=== PATIENT | female | born 1950 | race Caucasian/White ===

== ENCOUNTER 2022-09-13 16:34 | Observation (INO) | payer MEDICARE, SELFPAY ==
[2022-09-13] VITALS (23 sets, daily range): BP systolic 111–138; BP diastolic 62–83; PULSE 56–94; RESP 13–28; TEMP 36.8; O2SAT 96–100
--- NOTE | ~2022-09-13 | XR_ITS ---
EXAM: XR abdomen/kub 1V DATE: 09/13/2022 21:33 HISTORY: stent evaluation . COMPARISON: None available. FINDINGS: Bilateral ureteral stents projecting in expected position. Normal bowel gas pattern. No or ganomegaly. Multiple calcifications are present adjacent to the bilateral stents which may represent vascular calcifications, phleboliths, or distal ureteral stones. Lumbar degenerative disc disease. Os teitis pubis. IMPRESSION: Bilateral ureteral stents, in good position. Multiple calcifications are present adjacent to the stents which may represent ureteral stones. CT of the abdomen and pelvis would be helpful if more definitive characterization is needed at this time. Reviewed, dictated and finalized at location K. RAFT DISPATCHER IMPRESSION: Bilateral ureteral stents, in good position. Multiple calcification s are present adjacent to the stents which may represent ureteral stones. CT of the abdomen and pelvis would be helpful if more definitive characterization is needed at this time.
--- NOTE | ~2022-09-13 | US_ITS ---
EXAMINATION: US renal BI DATE: 09/13/2022 22:09 INDICATION: renal and bladder US for stents and SURENDRA TECHNIQUE: Multiple grayscale and Doppler ultrasound images of the kidneys were obtained. COMPARISON: X-ray abdomen, same date FINDINGS: The right kidney measures 10.4 x 5.0 x 5.5 cm. The left kidney measures 10.4 x 5.3 x 5.7 cm. The kidn eys demonstrate normal parenchymal echogenicity. There is mild left and moderate right hydronephrosis . Ureteral jets were not detected during the examination. No bladder wall thickening. No bladder mass or debris detected. IMPRESSION: Mild left and moderate right hydronephrosis. Ureteral jets were not visualized in the bladder. The kn own bilateral ureteral stents were not visible sonographically. Reviewed, dictated and finalized at location K. T ROLLER COVER MACHINE SETTER IMPRESSION: Mild left and moderate right hydronephrosis. Ureteral jets were not visualized in the bladder. The known bilateral ureteral stents were not visible sonographi cecelia.
--- NOTE | ~2022-09-13 | CT_ITS ---
CT scan of the Abdomen and Pelvis Clinical indication: Hydronephrosis Technique: 5 mm axial scans were obtained through the abdomen and pelvis with oral contrast only. Do se reduction technique was used on this scan by utilizing automated exposure control and iterative re construction technique. The dose-length product (DLP) was 536.80 mGy-cm. Findings: Images through the lung bases reveal no abnormalities. There is mild to moderate bilateral hydronephrosis. Bilateral ureteral stents are present. No radiopa que stones identified. The liver, spleen, pancreas, and adrenals appear normal. Gallbladder not visualized. There is no aort ic aneurysm. There is no evidence of bowel obstruction. Normal appendix. Images through the pelvis were performed. There is no evidence of ascites or lymphadenopathy. Urinary bladder relatively collapsed, Morales catheter balloon and distal portion of ureteral stents present. No adnexal mass evident. No ascites. Mild compression deformity of L4 noted, age indeterminate. Impression: Mild to moderate bilateral hydronephrosis with bilateral ureteral stents in place. No obstructing mas s or stones identified. Mild L4 compression deformity, age indeterminate. Reviewed, dictated and finalized at location [] WARE ENGINEER ADVISOR Impression: Mild to moderate bilateral hydronephrosis with bilateral ureteral stents in dov ce. No obstructing mass or stones identified. Mild L4 compression deformity, age indeterminate.
--- NOTE | 2022-09-13 16:45 | ECG_ITS ---
Measurements Intervals [place] Rate: 72 P: 46 [place]: 162 QRS: -20 QRSD: 105 T: 53 QT: 344 QTc: 376 Interpretive Statements SINUS RHYTHM MINIMAL VOLTAGE CRITERIA FOR LVH, CONSIDER NORMAL VARIANT [MEETS CRITERIA IN ONE OF: R(aVL), S(V1), R(V5), R(V5/V6)+S(V1)] NO PREVIOUS ECG AVAILABLE FOR COMPARISON Electronically Signed On 09-13-2022 19:13:04 SENIOR INTERNAL AUDITOR by Estela Rutledge M.D.
[2022-09-13 17:01] LABS: Basophils Absolute Auto 0.1 K/mm3 (0.0-0.1); Eosinophils Absolute Auto 0.2 K/mm3 (0-0.3); Eosinophils Percent Auto 3.1 % (0-4.4); Hematocrit 36.8 % (37.0-47.0); Hemoglobin 11.4 g/dL (12.0-15.0); Immature Granulocyte Absolute 0.03 K/mm3 (0.00-0.031); Immature Granulocyte Percent A 0.4 % (0-0.5); Lymphocytes Absolute Auto 1.75 K/mm3 (0.9-3.2); Lymphocytes Percent Auto 22.6 % (18.3-44.2); Mean Corpuscular Hemoglobin 29.5 pg (26-34); Mean Corpuscular Volume 95.1 fl (80-100); Mean Platelet Volume 9.3 fl (7.4-10.4); Monocytes Absolute Auto 0.4 K/mm3 (0.1-0.6); Monocytes Percent Auto 5.2 % (2.6-8.5); Neutrophils Absolute Auto 5.3 K/mm3 (1.3-6.7); Neutrophils Percent Auto 67.7 % (45.5-73.1); Platelet Count Result 356 k/mm3 (150-375); Red Blood Count 3.87 M/mm3 (4.2-5.4); Red Cell Distribution Width 13.2 % (11.5-14.5); White Blood Count 7.8 K/mm3 (4.5-10.0)
[2022-09-13 17:11] LABS: Alanine Aminotransferase 24 U/L (6-35); Albumin Level 4.5 g/dL (3.5-5.1); Alkaline Phosphatase 134 U/L (38-126); Anion Gap 9 mmol/L (8-16); Aspartate Amino Transferase 26 U/L (14-36); Bilirubin,Total 0.5 mg/dL (0.2-1.3); Blood Urea Nitrogen 42 mg/dL (7-17); Calcium 9.9 mg/dL (8.4-10.2); Carbon Dioxide 20 mmol/L (22-30); Chloride 102 mmol/L (98-107); Estimated CRCL calculation 16 ml/min; Estimated Glomerular Filt Rate 17; Glucose 90 mg/dL (65-110); Potassium 5.9 mmol/L (3.4-5.0); Sodium 131 mmol/L (137-145)
[2022-09-13] MEDS: ONDANSETRON INJ 4 MG/2 ML VIAL IV PUSH (20:15)
[2022-09-13] MEDS: SODIUM CHLORIDE 0.9% IV 1,000 ML 999 ML IV CONT (20:15)
[2022-09-13] MEDS: BELLADONNA ALK/PHENOB ELIX 10 ML, MAG HYDROX/ALUMINUM HYD/SIMETH 30 ML, LIDOCAINE HCL 2... PO (20:16)
[2022-09-13 21:09] LABS: Add Urine Microscopic? YES; Appearance Urine Cloudy (Clear); Bilirubin Urine Negative (Negative); Blood Urine 2+ (Negative); Color Urine Light Yellow (Yellow); Glucose Urine UA Negative (Negative); Ketones Urine Negative (Negative); Leukocyte Esterase Ur 1+ LEU/UL (Negative); Nitrate Urine Negative (Negative); Protein Urine 2+ mg/dL (Negative); Urobilinogen Urine 0.2 mg/dL (<2.0); pH Urine 5.5 (5.0-9.0)
[2022-09-13 21:17] LABS: Amorphous Sediment Urine Few; Bacteria Urine Trace /hpf; Hyaline Casts Urine 15-19 /lpf; Mucus Urine Rare /lpf; RBC Urine 21-50 /hpf (0-2); Squamous Epithelial Cell Urine Few /hpf (Few); WBC Clumps Urine Present /HPF; WBC Urine 51-75 /hpf
--- NOTE | 2022-09-13 21:45 | ED.GENADULT ---
HPI - General Adult General Chief complaint: Recheck/Abnormal Lab/Rx Stated complaint: high k+ Time Seen by Provider: 09/13/22 19:45 History of Present Illness HPI narrative: Patient is a 71-year-old female who presents the ER with abnormal labs. She had hyperkalemia outpatient so she was instructed to come to the ER to be evaluated. Last week patient was admitted to [facility] and had stenting performed of her ureters bilaterally because she has a cystocele that is causing obstruction and kidney injury. She is unsure what her creatinine is at baseline nor what it improved to after she had her stenting. She is supposed to follow-up with urology and see Dr. Hurtado tomorrow. She has been having increased fatigue and weakness. No fevers or chills or sweats. She has been able to urinate. Patient had been on Bactrim until 2 days ago. Review of Systems Review of Systems: All systems reviewed & are unremarkable except as noted in HPI and below Constitutional: Constitutional: Denies chills, Reports fatigue and Denies fever(s) ENT: Denies nasal congestion and Denies sore throat Cardiovascular: Cardiovascular: Denies chest pain, Denies rapid heart rate and Denies radiating jaw, neck or arm pain Respiratory: Respiratory: Denies cough and Denies dyspnea Gastrointestinal: Gastrointestinal: Denies abdominal pain, Denies nausea and Denies vomiting Genitourinary: Genitourinary: Denies hematuria, Denies nocturia, Denies dysuria and Denies urinary incontinence PMFSH Past Medical History Medical History (Updated 09/13/22 @ 21:54 by Nadeem Bush MD) Cystocele GERD (gastroesophageal reflux disease) Hypertension Surgical History Surgical History (Updated 09/13/22 @ 21:52 by Nadeem Bush MD) No pertinent past surgical history Exam Narrative: GENERAL: Well-appearing, well-nourished, and in no acute distress. HEAD: Normocephalic, atraumatic. ENT: Mucous membranes moist. CHEST: Clear to auscultation. No respiratory distress. HEART: Regular rate and rhythm. Normal peripheral pulses. ABDOMEN: Soft, nontender, nondistended. EXTREMITIES: Normal range of motion. No edema. SKIN: Warm, dry, no rash. NEURO: Alert and oriented x3. PSYCH: Normal mood and affect. Course Course Emergency Course: Patient resting comfortably. Informed of results. Urology consulted. Recommend patient have a renal bladder ultrasound and then have patient urinate and place a Morales for I's and O's. After the urination the post void residual should be calculated. Patient will continue to be hydrated to help reduce her hyperkalemia. Records requested from [facility]. Patient will be admitted to the hospitalist service. Vital Signs Vital signs: Vital Signs Temperature 98.2 F 09/13/22 16:37 Pulse Rate 70 09/13/22 16:37 Respiratory Rate 16 09/13/22 16:37 Blood Pressure 133/68 09/13/22 16:37 Pulse Oximetry 100 09/13/22 16:37 Oxygen Delivery Room Air 09/13/22 16:37 Temperature 98.2 F 09/13/22 16:37 Pulse Rate 74 09/13/22 19:38 Respiratory Rate 18 09/13/22 19:38 Blood Pressure 138/83 09/13/22 19:38 Pulse Oximetry 98 09/13/22 19:38 Oxygen Delivery Room Air 09/13/22 16:37 Medical Decision Making Vital Signs Vital Signs: Vital Signs Temperature 98.2 F 09/13/22 16:37 Pulse Rate 70 09/13/22 16:37 Respiratory Rate 16 09/13/22 16:37 Blood Pressure 133/68 09/13/22 16:37 Pulse Oximetry 100 09/13/22 16:37 Oxygen Delivery Room Air 09/13/22 16:37 Temperature 98.2 F 09/13/22 16:37 Pulse Rate 74 09/13/22 19:38 Respiratory Rate 18 09/13/22 19:38 Blood Pressure 138/83 09/13/22 19:38 Pulse Oximetry 98 09/13/22 19:38 Oxygen Delivery Room Air 09/13/22 16:37 Lab Data 09/13/22 16:54 09/13/22 16:54 Labs: Lab Results 09/13/22 09/13/22 09/13/22 Range/Units 16:54 16:54 20:52 WBC 7.8 (4.5-10.0) K/mm3 RBC 3.87 L
[2022-09-13 22:12] LABS: Influenza A QL RT-PCR Negative (Negative); Influenza B QL RT-PCR Negative (Negative); RSV RNA, RT-PCR Negative (Negative); SARS-CoV-2 RNA PCR Negative
--- NOTE | 2022-09-13 22:34 | PM.IMHP ---
H&P: HPI History of Present Illness Date/Time: 09/13/22 22:34 Chief Complaint: abnormal lab work Narrative: This is a 71-year-old female with past medical history significant for cystocele, your obstructive uropathy, status post bilateral ureter stent placement, urinary tract infection. patient comes to the emergency room after outpatient lab work showed an elevated potassium. Repeated lab work in the emergency room showed a potassium value of 5.9, BUN of 40, creatinine 2.8, patient states that she has no appetite, denies any fevers, rigors, chills, nausea, vomiting, diarrhea, shortness of breath, cough, sputum production. a Morales was placed in the emergency room. patient is been admitted for further evaluation management and treatment. Abdomen x-ray was reported as: IMPRESSION: Bilateral ureteral stents, in good position. Multiple calcifications are present adjacent to the stents which may represent ureteral stones. CT of the abdomen and pelvis would be helpful if more definitive characterization is needed at this time. bilateral kidney ultrasound was reported as: IMPRESSION: Mild left and moderate right hydronephrosis. Ureteral jets were not visualized in the bladder. The known bilateral ureteral stents were not visible sonographically. Review of Systems Review of Systems: Abnormal lab value, poor appetite. Constitutional: Constitutional: Denies chills, Denies fever(s) and Reports poor appetite Eyes: Eyes: Denies change in vision ENT: Denies dysphagia, Denies vertigo, Denies dizziness and Denies odynophagia Cardiovascular: Cardiovascular: Denies chest pain, Denies leg edema, Denies radiating jaw, neck or arm pain and Denies palpitations Respiratory: Respiratory: Denies change in phlegm color, Denies chest congestion, Denies cough, Denies excessive phlegm production, Denies pain on inspiration, Denies dyspnea and Denies dyspnea on exertion Gastrointestinal: Gastrointestinal: Denies abdominal pain, Denies dyspepsia, Denies heartburn, Denies diarrhea, Denies loose stools, Denies nausea and Denies vomiting Genitourinary: Genitourinary: Reports no additional female genitourinary complaints and Reports as per HPI Musculoskeletal: Musculoskeletal: Reports no additional musculoskeletal complaints and Reports as per HPI Integumentary/Breasts: Skin/Breast: Denies rash Neurologic: Denies focal weakness and Denies Sensory deficit (Neuro) Psychiatric: Psychiatric: Reports no additional psychiatric complaints Endocrine: Endocrine: Denies cold intolerance, Denies flushing, Denies heat intolerance, Denies polyphagia, Denies polydipsia and Denies palpitations Allergic/Immunologic: Allergic/Immunologic: Reports no additional allergic/immunologic complaints and Reports as per [facility] Past Medical History Medical History (Updated 09/14/22 @ 04:28 by Carmen Hanna MD) Cystocele GERD (gastroesophageal reflux disease) Hypertension Surgical History Surgical History (Updated 09/13/22 @ 21:52 by Nadeem Bush MD) No pertinent past surgical history Family History Family History (Updated 09/14/22 @ 01:43 by Lovely Limon RN) Father Acute myocardial infarction Mother Cervical cancer Social History Social History Smoking packs per day: 2 Smoking cigarettes per day: 40.0 Smoking status: Former smoker Tobacco type: cigarettes Alcohol intake: never Substance use: never Substance use type: does not use Lack of Transportation: No Lack of Food: Never True Current Housing: I Have Housing Concerned About Future Housing: No Difficulty Paying Gas/Electric Bills: No Difficulty Paying for Meds: No Currently Unemployed: No Education: High School Diploma/GED Difficulty w/ Childcare or Family Care: No Spiritual care concerns: No Meds Home Medications and Allergies Home Medications Medication Instructions Recorded Confirmed Type amlodipine 5 mg tablet 5 mg PO DAILY
[2022-09-14] VITALS (18 sets, daily range): BP systolic 101–138; BP diastolic 50–83; PULSE 57–80; RESP 15–21; TEMP 36.1–36.7; O2SAT 93–100; BMI 26.4
--- NOTE | 2022-09-14 01:23 | ADMGEN ---
This patient, Thuy Sauceda, was admitted to Medical Room 248-. Patient/family oriented to hospital policies and general routines including ID bracelet, bed and alarms, visiting hours, pain management, procedures, bathroom and other care routines, personal items, smoking policy, room service/diet, and visiting hours. Information on how to activate the Rapid Response Team has been discussed. Patient/Family are encouraged to report perceived risks to care and to ask questions if they do not understand what they are told or what they should do.
[2022-09-14] MEDS: SODIUM CHLORIDE 0.9% IV 1,000 ML 125 ML IV CONT ×3 (02:00→18:58)
[2022-09-14] MEDS: PANTOPRAZOLE SODIUM IV 40 MG VIAL IV PUSH (03:15)
[2022-09-14 04:56] LABS: Anion Gap 5 mmol/L (8-16); Blood Urea Nitrogen 36 mg/dL (7-17); Calcium 9.2 mg/dL (8.4-10.2); Carbon Dioxide 22 mmol/L (22-30); Chloride 108 mmol/L (98-107); Estimated CRCL calculation 20 ml/min; Estimated Glomerular Filt Rate 21; Glucose 87 mg/dL (65-110); Potassium 6.7 mmol/L (3.4-5.0); Sodium 135 mmol/L (137-145)
[2022-09-14] MEDS: SODIUM ZIRCONIUM CYCLOSILICATE 10 GM POWD.PACK PO ×3 (05:34→17:24)
[2022-09-14] MEDS: DEXTROSE 50% 25 GM/50 ML SYRINGE IV PUSH (05:39)
[2022-09-14] MEDS: CALCIUM GLUC 1,000 MG/NS 50 ML 1,000 MG/50 ML BAG 100 MG IVPB (05:39)
[2022-09-14] MEDS: INSULIN HUMAN REGULAR (*BKC) 100 UNITS/ML SUB-Q (05:39)
[2022-09-14 08:36] LABS: Potassium 5.6 mmol/L (3.4-5.0)
[2022-09-14] MEDS: amLODIPine BESYLATE 5 MG TABLET PO (09:58)
[2022-09-14] MEDS: PANTOPRAZOLE 40 MG TABLET PO (09:59)
[2022-09-14 10:00] LABS: Add Urine Microscopic? YES; Appearance Urine Clear (Clear); Bilirubin Urine Negative (Negative); Blood Urine 1+ (Negative); Color Urine Light Yellow (Yellow); Glucose Urine UA Negative (Negative); Ketones Urine Negative (Negative); Leukocyte Esterase Ur 2+ LEU/UL (NEGATIVE); Nitrate Urine Negative (Negative); Protein Urine Negative (Negative); Specific Grav Ur 1.015 (1.001-1.035); Urobilinogen Urine 0.2 mg/dL (<2.0); pH Urine 5.5 (5.0-9.0)
[2022-09-14 10:14] LABS: Bacteria Urine Trace /hpf; Mucus Urine Rare /lpf; Squamous Epithelial Cell Urine Rare /hpf (Few); WBC Urine 31-50 /hpf (0-3)
--- NOTE | 2022-09-14 11:00 | PM.IMPN ---
Progress Note: A&P Assessment and Plan (1) SURENDRA (acute kidney injury): Code(s): N17.9 - Acute kidney failure, unspecified Status: Acute Assessment and Plan: creatinine upon arrival was 2.80 current BUN and creatinine 36/2.30 holding Hira inhibitor receiving IV fluid Morales catheter in place likely post renal continue to monitor trend labs urology consult thank you for your help (2) Acute hyperkalemia: Code(s): E87.5 - Hyperkalemia Status: Acute Assessment and Plan: current potassium is 6.7 this morning repeat was 5.6 holding HIRA-inhibitor Lokelma b.i.d. x2 doses trend potassium adjust therapy as indicated (3) GERD (gastroesophageal reflux disease): Code(s): K21.9 - Gastro-esophageal reflux disease without esophagitis Status: Acute Assessment and Plan: PPI as needed (4) Cystocele: Status: Acute Assessment and Plan: follow-up in outpatient setting (5) Hydronephrosis: Code(s): N13.30 - Unspecified hydronephrosis Status: Acute Assessment and Plan: CT the abdomen pelvis showed mild moderate hydronephrosis renal ultrasound showed [id number] right hydronephrosis urinary stents are in place urology consulted trend urine output (6) Hypertension: Code(s): I10 - Essential (primary) hypertension Status: Acute Assessment and Plan: current blood pressure 107/51 trend blood pressure continue amlodipine adjust therapy as indicated Time Spent With Patient Time with patient: Greater than 35 minutes Subjective Date/time seen: 09/14/22 1100 Interval history: 09/14/22 1100 patient was resting comfortably in bed and stated that she feels a lot better today. She does have good urine output per the urinary catheter. It appears that there is better repeat CT which does show mild to moderate continued hydronephrosis. She denies any chest pain, shortness a breath, burning, pain, urgency or frequency as she does have a catheter in. She also denies any pain at this time. She did state that she is having a little bit of GERD but that is not present the time of examination. 09/13/22? 22:34 ?This is a 71-year-old female with past medical history significant for cystocele, your obstructive uropathy, status post bilateral ureter stent placement, urinary tract infection. patient comes to the emergency room after outpatient lab work showed an elevated potassium.? Repeated lab work in the emergency room showed a potassium value of 5.9, BUN of 40, creatinine 2.8, patient states that she has no appetite, denies any fevers, rigors, chills, nausea, vomiting, diarrhea, shortness of breath, cough, sputum production. a Morales was placed in the emergency room. patient is been admitted for further evaluation management and treatment. Review of Systems Review of Systems: All systems reviewed & are unremarkable except as noted in HPI and below Exam Narrative: General: well-nourished, well-appearing 71-year-old female, sitting up in bed, comfortable, NARD Neuro: awake, alert and oriented x4, speech clear, no focal neuro deficits noted HEENMT: normocephalic, atraumatic, EOMI, sclerae anicteric, moist oral mucosa Respiratory: Clear to auscultation bilaterally without crackles, rhonchi or wheezes, nonlabored breathing Cardio: regular rate, regular rhythm with S1-S2 Abdomen: nondistended, normoactive bowel sounds, soft, nontender to palpation : catheter present with clear yellow drainage Extremities: no edema, erythema, or tenderness to palpation, DP pulses 2+ bilaterally Skin: no rashes or lesions, warm and dry Psych: appropriate mood and affect, judgment and insight intact Objective Data Vital Signs Vital Signs: Vital Signs - 24 hr 09/13/22 16:37 09/13/22 19:38 09/13/22 19:
--- NOTE | 2022-09-14 11:00 | P.PNIM_ITS ---
Progress Note: A&P Assessment and Plan (1) SURENDRA (acute kidney injury): Code(s): N17.9 - Acute kidney failure, unspecified Status: Acute Assessment and Plan: * creatinine upon arrival was 2.80 * current BUN and creatinine 36/2.30 * holding Hira inhibitor * receiving IV fluid * Morales catheter in place * likely post renal * continue to monitor * trend labs * urology consult thank you for your help (2) Acute hyperkalemia: Code(s): E87.5 - Hyperkalemia Status: Acute Assessment and Plan: * current potassium is 6.7 this morning repeat was 5.6 * holding HIRA-inhibitor * Lokelma b.i.d. x2 doses * trend potassium * adjust therapy as indicated (3) GERD (gastroesophageal reflux disease): Code(s): K21.9 - Gastro-esophageal reflux disease without esophagitis Status: Acute Assessment and Plan: * PPI as needed (4) Cystocele: Status: Acute Assessment and Plan: * follow-up in outpatient setting (5) Hydronephrosis: Code(s): N13.30 - Unspecified hydronephrosis Status: Acute Assessment and Plan: * CT the abdomen pelvis showed mild moderate hydronephrosis * renal ultrasound showed [id number] right hydronephrosis * urinary stents are in place * urology consulted * trend urine output (6) Hypertension: Code(s): I10 - Essential (primary) hypertension Status: Acute Assessment and Plan: * current blood pressure 107/51 * trend blood pressure * continue amlodipine * adjust therapy as indicated Time Spent With Patient Time with patient: Greater than 35 minutes Subjective Date/time seen: 09/14/22 1100 Interval history: 09/14/22 1100 patient was resting comfortably in bed and stated that she feels a lot better today. She does have good urine output per the urinary catheter. It appears that there is better repeat CT which does show mild to moderate continued hydronephrosis. She denies any chest pain, shortness a breath, burning, pain, urgency or frequency as she does have a catheter in. She also denies any pain at this time. She did state that she is having a little bit of GERD but that is not present the time of examination. 09/13/22? 22:34 ?This is a 71-year-old female with past medical history significant for cystocele, your obstructive uropathy, status post bilateral ureter stent placement, urinary tract infection. patient comes to the emergency room after outpatient lab work showed an elevated potassium.? Repeated lab work in the emergency room showed a potassium value of 5.9, BUN of 40, creatinine 2.8, patient states that she has no appetite, denies any fevers, rigors, chills, nausea, vomiting, diarrhea, shortness of breath, cough, sputum production. a Morales was placed in the emergency room. patient is been admitted for further evaluation management and treatment. Review of Systems Review of Systems: All systems reviewed & are unremarkable except as noted in HPI and below Exam Narrative: General: well-nourished, well-appearing 71-year-old female, sitting up in bed, comfortable, NARD Neuro: awake, alert and oriented x4, speech clear, no focal neuro deficits noted HEENMT: normocephalic, atraumatic,
--- NOTE | 2022-09-14 15:39 | WPDURCON ---
Assessment and Plan Assessment and plan (1) Hydronephrosis: Code(s): N13.30 - Unspecified hydronephrosis Status: Acute Assessment and Plan: Stents in place and draining, creatinine improving with serrano catheter in place for maximal drainage. Likely d/t extrinsic pressure from prolapse. Patient will ultimately need an outpatient colpocleisis if not sexually active or a sacral colpopexy to correct the issue. She understands her stents and catheter will remain in until then with monthly catheter changes. She will need to see Dr. Hurtado and I will have a discussion about the urgency of the matter of this. No need for surgical intervention at this time. She should proceed to have her labs stabilized and to rule out a UTI. (2) Cystocele: Status: Acute (3) SURENDRA (acute kidney injury): Code(s): N17.9 - Acute kidney failure, unspecified Status: Acute Assessment and Plan: Improving with cath placement and stents in place. Urology Consult Note HPI Date Seen: 09/14/22 Time Seen: 12:00 Requesting Physician: Carmen Hanna MD Primary Care Provider: Dejon Corral, Consult Narrative Reason for consult: Bilateral [place], Retained Stents, Possible UTI Narrative: Thuy Sauceda is a 71 year old female who presented to the ER at the advise of her PCP d/t hyperkalemia. She was previously hospitalized at [facility] last week and had bilateral stents placed d/t bilateral hydronephrosis d/t extrinsic pressure from her severe prolapse by Dr. Titus. She was then found to have SURENDRA while here and a creatinine of 2.80. After a serrano was placed her creatinine has started to decrease to 2.30 today. Her WBC is 7.8, but UA is suspicious of a UTI. She was having urinary frequency and dysuria as well as difficultly emptying her bladder. [facility] 09/13/22 mild left and moderate right hydronephrosis noted. A CT scan was then ordered today showing mild to moderate bilateral hydronephrosis with bilateral ureteral stents in place. No obstructing mass or stones identified. The patient states that her prolapse has been bothersome for approximately 2 years as well as difficulty voiding. She is unsure of her baseline creatinine. Review of Systems Cardiovascular: Cardiovascular: Denies chest pain Respiratory: Respiratory: Reports no additional respiratory complaints Gastrointestinal: Gastrointestinal: Reports no additional gastrointestinal complaints, Denies abdominal pain, Denies nausea and Denies vomiting Genitourinary: Genitourinary: Denies hematuria, Reports nocturia, Denies dysuria, Denies flank pain, Denies urinary incontinence, Reports urinary hesitancy and Denies urinary urgency PMFSH Past Medical History Medical History Cystocele GERD (gastroesophageal reflux disease) Hypertension Surgical History Surgical History No pertinent past surgical history Family History Family History Father Acute myocardial infarction Mother Cervical cancer Social History Social History Smoking packs per day: 2 Smoking cigarettes per day: 40.0 Smoking status: Former smoker Tobacco type: cigarettes Alcohol intake: never Substance use: never Substance use type: does not use Lack of Transportation: No Lack of Food: Never True Current Housing: I Have Housing Concerned About Future Housing: No Difficulty Paying Gas/Electric Bills: No Difficulty Paying for Meds: No Currently Unemployed: No Education: High School Diploma/GED Difficulty w/ Childcare or Family Care: No Spiritual care concerns: No Meds Home Medications and Allergies Home Medications Medication Instructions Recorded Confirmed Type amlodipine 5 mg tablet 5 mg PO DAILY 09/14/2209/01
[2022-09-15] VITALS: PULSE 60
[2022-09-15] MEDS: SODIUM CHLORIDE 0.9% IV 1,000 ML 125 ML IV CONT (02:50)
[2022-09-15 04:00] VITALS: BP 101/55; PULSE 61; PULSE 63; RESP 17; TEMP 36.5; O2SAT 94
[2022-09-15 05:48] LABS: Basophils Absolute Auto 0.1 K/mm3 (0.0-0.1); Basophils Percent Auto 1.3 % (0.2-1.2); Eosinophils Absolute Auto 0.4 K/mm3 (0-0.3); Eosinophils Percent Auto 7.7 % (0-4.4); Hematocrit 29.1 % (37.0-47.0); Hemoglobin 8.9 g/dL (12.0-15.0); Immature Granulocyte Absolute 0.01 K/mm3 (0.00-0.031); Immature Granulocyte Percent A 0.2 % (0-0.5); Lymphocytes Absolute Auto 2.26 K/mm3 (0.9-3.2); Lymphocytes Percent Auto 40.4 % (18.3-44.2); Mean Corpuscular HGB Conc 30.6 g/dl (32-36); Mean Corpuscular Hemoglobin 29.8 pg (26-34); Mean Corpuscular Volume 97.3 fl (80-100); Mean Platelet Volume 9.5 fl (7.4-10.4); Monocytes Absolute Auto 0.4 K/mm3 (0.1-0.6); Neutrophils Absolute Auto 2.4 K/mm3 (1.3-6.7); Neutrophils Percent Auto 43.4 % (45.5-73.1); Platelet Count Result 231 k/mm3 (150-375); Red Blood Count 2.99 M/mm3 (4.2-5.4); Red Cell Distribution Width 13.2 % (11.5-14.5); White Blood Count 5.6 K/mm3 (4.5-10.0)
[2022-09-15 06:03] LABS: Alanine Aminotransferase 17 U/L (6-35); Albumin Level 3.3 g/dL (3.5-5.1); Alkaline Phosphatase 101 U/L (38-126); Anion Gap 3 mmol/L (8-16); Aspartate Amino Transferase 20 U/L (14-36); Bilirubin,Total 0.3 mg/dL (0.2-1.3); Blood Urea Nitrogen 23 mg/dL (7-17); Calcium 8.5 mg/dL (8.4-10.2); Carbon Dioxide 22 mmol/L (22-30); Chloride 115 mmol/L (98-107); Estimated CRCL calculation 25 ml/min; Estimated Glomerular Filt Rate 28; Glucose 79 mg/dL (65-110); Potassium 5.2 mmol/L (3.4-5.0); Sodium 140 mmol/L (137-145)
--- NOTE | 2022-09-15 06:25 | P.PNIM_ITS ---
Progress Note: A&P Assessment and Plan (1) SURENDRA (acute kidney injury): Code(s): N17.9 - Acute kidney failure, unspecified Status: Acute Assessment and Plan: * creatinine upon arrival was 2.80 * current BUN and creatinine 23/1.80 * holding Hira inhibitor * receiving IV fluid, DC'd at this time * Morales catheter in place, will be DC'd with catheter in place * likely post renal * continue to monitor * trend labs * urology consult thank you for your help (2) Acute hyperkalemia: Code(s): E87.5 - Hyperkalemia Status: Acute Assessment and Plan: * current potassium is 6.7 this morning 5.2 * holding HIRA-inhibitor * Lokelma give one more dose * One dose of IV lasix * Repeat labs in the afternoon * trend potassium * adjust therapy as indicated (3) GERD (gastroesophageal reflux disease): Code(s): K21.9 - Gastro-esophageal reflux disease without esophagitis Status: Acute Assessment and Plan: * PPI as needed (4) Cystocele: Status: Acute Assessment and Plan: * follow-up in outpatient setting (5) Hydronephrosis: Code(s): N13.30 - Unspecified hydronephrosis Status: Acute Assessment and Plan: * CT the abdomen pelvis showed mild moderate hydronephrosis * renal ultrasound showed rvtk-ny-szyieytz right hydronephrosis * urinary stents are in place * urology consulted * trend urine output (6) Hypertension: Code(s): I10 - Essential (primary) hypertension Status: Acute Assessment and Plan: * current blood pressure 101/55 * trend blood pressure * continue amlodipine * adjust therapy as indicated Time Spent With Patient Time with patient: Greater than 35 minutes Subjective Date/time seen: 09/15/22 06:25 Interval history: 09/15/22 09/14/22 1100 patient was resting comfortably in bed and stated that she feels a lot better today. She does have good urine output per the urinary catheter. It appears that there is better repeat CT which does show mild to moderate continued hydronephrosis. She denies any chest pain, shortness a breath, burning, pain, urgency or frequency as she does have a catheter in. She also denies any pain at this time. She did state that she is having a little bit of GERD but that is not present the time of examination. 09/13/22? 22:34 ?This is a 71-year-old female with past medical history significant for cystocele, your obstructive uropathy, status post bilateral ureter stent placement, urinary tract infection. patient comes to the emergency room after outpatient lab work showed an elevated potassium.? Repeated lab work in the emergency room showed a potassium value of 5.9, BUN of 40, creatinine 2.8, patient states that she has no appetite, denies any fevers, rigors, chills, nausea, vomiting, diarrhea, shortness of breath, cough, sputum production. a Morales was placed in the emergency room. patient is been admitted for further evaluation management and treatment. Review of Systems Review of Systems: All systems reviewed & are unremarkable except as noted in HPI and below Exam Narrative: General: well-nourished, well-appearing 71-year-old female, sitting up in bed, c
--- NOTE | 2022-09-15 06:25 | PM.IMPN ---
Progress Note: A&P Assessment and Plan (1) SURENDRA (acute kidney injury): Code(s): N17.9 - Acute kidney failure, unspecified Status: Acute Assessment and Plan: creatinine upon arrival was 2.80 current BUN and creatinine 23/1.80 holding Hira inhibitor receiving IV fluid, DC'd at this time Morales catheter in place, will be DC'd with catheter in place likely post renal continue to monitor trend labs urology consult thank you for your help (2) Acute hyperkalemia: Code(s): E87.5 - Hyperkalemia Status: Acute Assessment and Plan: current potassium is 6.7 this morning 5.2 holding HIRA-inhibitor Lokelma give one more dose One dose of IV lasix Repeat labs in the afternoon trend potassium adjust therapy as indicated (3) GERD (gastroesophageal reflux disease): Code(s): K21.9 - Gastro-esophageal reflux disease without esophagitis Status: Acute Assessment and Plan: PPI as needed (4) Cystocele: Status: Acute Assessment and Plan: follow-up in outpatient setting (5) Hydronephrosis: Code(s): N13.30 - Unspecified hydronephrosis Status: Acute Assessment and Plan: CT the abdomen pelvis showed mild moderate hydronephrosis renal ultrasound showed prig-qy-itziyend right hydronephrosis urinary stents are in place urology consulted trend urine output (6) Hypertension: Code(s): I10 - Essential (primary) hypertension Status: Acute Assessment and Plan: current blood pressure 101/55 trend blood pressure continue amlodipine adjust therapy as indicated Time Spent With Patient Time with patient: Greater than 35 minutes Subjective Date/time seen: 09/15/22 06:25 Interval history: 09/15/22 09/14/22 1100 patient was resting comfortably in bed and stated that she feels a lot better today. She does have good urine output per the urinary catheter. It appears that there is better repeat CT which does show mild to moderate continued hydronephrosis. She denies any chest pain, shortness a breath, burning, pain, urgency or frequency as she does have a catheter in. She also denies any pain at this time. She did state that she is having a little bit of GERD but that is not present the time of examination. 09/13/22? 22:34 ?This is a 71-year-old female with past medical history significant for cystocele, your obstructive uropathy, status post bilateral ureter stent placement, urinary tract infection. patient comes to the emergency room after outpatient lab work showed an elevated potassium.? Repeated lab work in the emergency room showed a potassium value of 5.9, BUN of 40, creatinine 2.8, patient states that she has no appetite, denies any fevers, rigors, chills, nausea, vomiting, diarrhea, shortness of breath, cough, sputum production. a Omrales was placed in the emergency room. patient is been admitted for further evaluation management and treatment. Review of Systems Review of Systems: All systems reviewed & are unremarkable except as noted in HPI and below Exam Narrative: General: well-nourished, well-appearing 71-year-old female, sitting up in bed, comfortable, NARD Neuro: awake, alert and oriented x4, speech clear, no focal neuro deficits noted HEENMT: normocephalic, atraumatic, EOMI, sclerae anicteric, moist oral mucosa Respiratory: Clear to auscultation bilaterally without crackles, rhonchi or wheezes, nonlabored breathing Cardio: regular rate, regular rhythm with S1-S2 Abdomen: nondistended, normoactive bowel sounds, soft, nontender to palpation : catheter present with clear yellow drainage Extremities: no edema, erythema, or tenderness to palpation, DP pulses 2+ bilaterally Skin: no rashes or lesions, warm and dry Psych: appropriate mood and affect, judgment and insight i
[2022-09-15 08:00] VITALS: PULSE 62
[2022-09-15] MEDS: amLODIPine BESYLATE 5 MG TABLET PO (08:12)
[2022-09-15] MEDS: FUROSEMIDE INJ 40 MG/4 ML VIAL 20 MG IV PUSH (08:12)
[2022-09-15] MEDS: PANTOPRAZOLE 40 MG TABLET PO (08:12)
[2022-09-15] MEDS: SODIUM ZIRCONIUM CYCLOSILICATE 10 GM POWD.PACK PO (10:22)
[2022-09-15 10:34] VITALS: BP 106/58; PULSE 71; RESP 16; TEMP 36.7; O2SAT 98
--- NOTE | 2022-09-15 10:45 | PM.DS ---
DS: Admitting Diagnosis Discharge Date 09/15/22 1045 Admitting Diagnosis SURENDRA, Urinary retention, hyperkalemia DS: Discharge Diagnosis Discharge Diagnosis (1) SURENDRA (acute kidney injury): Code(s): N17.9 - Acute kidney failure, unspecified Status: Acute Assessment and Plan: creatinine upon arrival was 2.80 current BUN and creatinine 23/1.80 holding Hira inhibitor receiving IV fluid, DC'd at this time Morales catheter in place, will be DC'd with catheter in place likely post renal continue to monitor trend labs urology consult thank you for your help (2) Acute hyperkalemia: Code(s): E87.5 - Hyperkalemia Status: Acute Assessment and Plan: current potassium is 6.7 this morning 5.2 holding HIRA-inhibitor Lokelma give one more dose One dose of IV lasix Repeat labs in the afternoon trend potassium adjust therapy as indicated (3) GERD (gastroesophageal reflux disease): Code(s): K21.9 - Gastro-esophageal reflux disease without esophagitis Status: Acute Assessment and Plan: PPI as needed (4) Cystocele: Status: Acute Assessment and Plan: follow-up in outpatient setting (5) Hydronephrosis: Code(s): N13.30 - Unspecified hydronephrosis Status: Acute Assessment and Plan: CT the abdomen pelvis showed mild moderate hydronephrosis renal ultrasound showed uggd-pl-enssrpei right hydronephrosis urinary stents are in place urology consulted trend urine output (6) Hypertension: Code(s): I10 - Essential (primary) hypertension Status: Acute Assessment and Plan: current blood pressure 101/55 trend blood pressure continue amlodipine adjust therapy as indicated DS: Summary Hospital Course Hospital Course: Patient is 69-year-old female with past medical history cystocele, obstructive uropathy, bilateral ureteral stents, urinary tract infection who presented the emergency room due to elevated potassium. Upon arrival patient was noted to have a potassium of 6.7. Patient was given insulin and D50. IV fluids were also started. Patient was also placed with Morales catheter. Urology was consulted. CT of the abdomen pelvis did show zipa-ry-lzihejjd hydronephrosis and renal ultrasound also confirmed. Patient was given Lokelma and potassium is trending down. Renal function has also been trending down and is stable. Urine culture was also collected and did not show any growth. Patient denies any current complaints including chest pain, shortness a breath, nausea, vomiting, diarrhea, constipation, weakness or fatigue. Lisinopril has been placed on hold and blood pressures have been trending stable. Patient is stable for discharge at this time per labs and vital signs. Education has been given about Morales catheter. Also educated patient about taking her blood pressure twice a day and reporting them to her primary care provider for further instructions on when to restart her lisinopril. Patient verbalized understanding. Status at Discharge Functional status at discharge: independent ambulation Overall status at discharge: patient is progressing back to baseline Time Spent with Patient Time attestation: Total time spent providing and/or coordinating discharge services: 37 minutes Time spent: Greater than 30 minutes Specific discharge activities: Diagnostic testing, chart review, developing a treatment plan, education, care coordination documentation, physical exam, result review Exam Narrative: General: well-nourished, well-appearing 71-year-old female, sitting up in bed, comfortable, NARD Neuro: awake, alert and oriented x4, speech clear, no focal neuro deficits noted HEENMT: normocephalic, atraumatic, EOMI, sclerae anicteric, moist oral mucosa Respiratory: Clear to auscultation b
--- NOTE | 2022-09-15 10:45 | P.DS_ITS ---
DS: Admitting Diagnosis Discharge Date 09/15/22 1045 Admitting Diagnosis SURENDRA, Urinary retention, hyperkalemia DS: Discharge Diagnosis Discharge Diagnosis (1) SURENDRA (acute kidney injury): Code(s): N17.9 - Acute kidney failure, unspecified Status: Acute Assessment and Plan: * creatinine upon arrival was 2.80 * current BUN and creatinine 23/1.80 * holding Hira inhibitor * receiving IV fluid, DC'd at this time * Morales catheter in place, will be DC'd with catheter in place * likely post renal * continue to monitor * trend labs * urology consult thank you for your help (2) Acute hyperkalemia: Code(s): E87.5 - Hyperkalemia Status: Acute Assessment and Plan: * current potassium is 6.7 this morning 5.2 * holding HIRA-inhibitor * Lokelma give one more dose * One dose of IV lasix * Repeat labs in the afternoon * trend potassium * adjust therapy as indicated (3) GERD (gastroesophageal reflux disease): Code(s): K21.9 - Gastro-esophageal reflux disease without esophagitis Status: Acute Assessment and Plan: * PPI as needed (4) Cystocele: Status: Acute Assessment and Plan: * follow-up in outpatient setting (5) Hydronephrosis: Code(s): N13.30 - Unspecified hydronephrosis Status: Acute Assessment and Plan: * CT the abdomen pelvis showed mild moderate hydronephrosis * renal ultrasound showed dgxy-ku-vwjcmxul right hydronephrosis * urinary stents are in place * urology consulted * trend urine output (6) Hypertension: Code(s): I10 - Essential (primary) hypertension Status: Acute Assessment and Plan: * current blood pressure 101/55 * trend blood pressure * continue amlodipine * adjust therapy as indicated DS: Summary Hospital Course Hospital Course: Patient is 69-year-old female with past medical history cystocele, obstructive uropathy, bilateral ureteral stents, urinary tract infection who presented the emergency room due to elevated potassium. Upon arrival patient was noted to have a potassium of 6.7. Patient was given insulin and D50. IV fluids were also started. Patient was also placed with Morales catheter. Urology was consulted. CT of the abdomen pelvis did show pnhf-ns-ciwkuglr hydronephrosis and renal ultrasound also confirmed. Patient was given Lokelma and potassium is trending down. Renal function has also been trending down and is stable. Urine culture was also collected and did not show any growth. Patient denies any current complaints including chest pain, shortness a breath, nausea, vomiting, diarrhea, constipation, weakness or fatigue. Lisinopril has been placed on hold and blood pressures have been trending stable. Patient is stable for discharge at this time per labs and vital signs. Education has been given about Morales catheter. Also educated patient about taking her blood pressure twice a day and reporting them to her primary care provider for further i nstructions on when to restart her lisinopril. Patient verbalized understanding. Status at Discharge Functional status at discharge: independent ambulation Overall status at discharge: patient is progressing back to baseline Time Spent with Patient Time attestation: Total time spent pro
[2022-09-15] MEDS: polyethylene glycoL 3350 17 GM POWD.PACK PO (11:56)
[2022-09-15] MEDS: DOCUSATE SODIUM 100 MG CAPSULE PO (11:56)
[2022-09-15 12:00] VITALS: PULSE 67
[2022-09-15 14:27] LABS: Alanine Aminotransferase 18 U/L (6-35); Albumin Level 3.6 g/dL (3.5-5.1); Alkaline Phosphatase 114 U/L (38-126); Anion Gap 10 mmol/L (8-16); Aspartate Amino Transferase 35 U/L (14-36); Bilirubin,Total 0.6 mg/dL (0.2-1.3); Blood Urea Nitrogen 22 mg/dL (7-17); Calcium 8.9 mg/dL (8.4-10.2); Carbon Dioxide 16 mmol/L (22-30); Chloride 112 mmol/L (98-107); Estimated CRCL calculation 26 ml/min; Estimated Glomerular Filt Rate 30; Glucose 105 mg/dL (65-110); Potassium 4.9 mmol/L (3.4-5.0); Sodium 138 mmol/L (137-145)
[2022-09-15 14:58] VITALS: BP 115/61; PULSE 67; RESP 18; TEMP 36.6; O2SAT 100
== END 2022-09-15 16:13 | disposition home or self-care (01) ==
LOC: ANHED 22:45 → ANH2MED 09-15 06:34 → ANH3MEDSUR 09-16 11:27
PROVIDERS: Emergency Medicine; Nurse Practitioner; Admitting Provider Internal Medicine; Emergency Provider Emergency Medicine; PCP Internal Medicine; Visit Provider Internal Medicine
DX: N17.9 Acute kidney failure, unspecified (principal); E87.5 Hyperkalemia; K21.9 Gastro-esophageal reflux disease without esophagitis; N81.10 Cystocele, unspecified; N13.30 Unspecified hydronephrosis; Z96.0 Presence of urogenital implants; R53.1 Weakness; R63.0 Anorexia; Z68.26 Body mass index [BMI] 26.0-26.9, adult; Z20.822 Contact with and (suspected) exposure to COVID-19; I10 Essential (primary) hypertension; M43.8X6 Other specified deforming dorsopathies, lumbar region; Z87.891 Personal history of nicotine dependence; Z79.899 Other long term (current) drug therapy
CPT/HCPCS: 36415; 74018; 74176; 76775; 80048; 80053; 81001; 83735; 84132; 85025; 87086; 87637; 93005; 96361; 96374; 96375; 99285; A9270; C9113; G0378; J0610; J1815; J1940; J2405; J7030

== ENCOUNTER 2022-10-17 12:25 | Outpatient (CLI) | payer MEDICARE, SELFPAY ==
--- NOTE | ~2022-10-17 | US_ITS ---
EXAMINATION: US pelvic complete DATE: 10/17/2022 13:50 INDICATION: Uterine prolapse. Comparison:CT dated 09/14/2022 TECHNIQUE: Multiple transabdominal and endovaginal sonographic images of the pelvis performed. FINDINGS: The uterus measures 6.9 x 3 x 3.4 cm. The endometrial complex measures 2. Uterine echotextu re is heterogeneous without discrete mass. There is prolapse of the uterus into the vagina. The ovaries are not visualized. There is no free fluid in the pelvis. There are no abnormal masses seen on either side. IMPRESSION: 1. Uterine prolapse. Reviewed, dictated and finalized at location A. PROMENADE TILE SETTER IMPRESSION: 1. Uterine prolapse.
== END 2022-10-17 12:26 | disposition home or self-care (01) ==
PROVIDERS: PCP Internal Medicine; Visit Provider Nurse Practitioner Family
DX: N81.4 Uterovaginal prolapse, unspecified (principal)
CPT/HCPCS: 76856

== ENCOUNTER 2023-04-03 11:06 | Outpatient (CLI) | payer MEDICARE, SELFPAY ==
--- NOTE | ~2023-04-03 | US_ITS ---
EXAMINATION: US retroperitoneal comp DATE: 04/03/2023 12:00 INDICATION: Bilateral hydronephrosis TECHNIQUE: Multiple ultrasound grayscale images of the kidneys were obtained. COMPARISON: None. FINDINGS: The right kidney measures 10.6 x 4.1 x 4.4 cm. The left kidney measures 10.6 x 4.7 x 5.0 cm. The kidn eys demonstrate normal echogenicity. 1.6 cm anechoic cyst in the left kidney. There is no hydronephro sis in either kidney. No stones identified. The bladder is normal. IMPRESSION: 1. Normal kidneys without hydronephrosis. Reviewed, dictated and finalized at location B.
== END 2023-04-03 11:07 | disposition home or self-care (01) ==
PROVIDERS: PCP Internal Medicine; Visit Provider Nurse Practitioner Family
DX: N13.30 Unspecified hydronephrosis (principal)
CPT/HCPCS: 76770

== ENCOUNTER 2025-09-03 14:11 | Emergency (ER) | payer MEDICARE, SELFPAY ==
--- OUTSIDE RECORDS SUMMARY | 2024-06-28 08:00 | XMS_ITS ---
Author Organization [facility] Office Address [address] [place] [address] Care Team Providers Care Field Court Researcher Name Role Phone Will Tacho Unavailable [phone] Problems Problem Type SNOMED Code ICD Code Onset Dates Problem Status W/U Status Risk Notes Problem Essential hypertension (21394739) Essential hypertension (I10) Active confirmed Problem Cystocele (587111974) Cystocele, unspecified (N81.10) Active confirmed Problem Age-related osteoporosis (647444596) Age-related osteoporosis without current pathological fracture (M81.0) Active confirmed Encounters Encounter Location Date Provider Diagnosis [place] [facility] [address] [facility] [address] [place] [address] 06/28/2024 Tacho Solis Chronic kidney disease, stage 3 unspecified N18.30 ; Essential hypertension I10 ; Cystocele, unspecified N81.10 ; Dyspnea, unspecified R06.00 and Age-related osteoporosis without current pathological fracture M81.0 Assessments Encounter Date Diagnosis (ICD Code) Assessment Notes Treatment Notes Treatment Clinical Notes Section Notes 06/28/2024 Chronic kidney disease, stage 3 unspecified (ICD-10 - N18.30) 06/28/2024 Essential hypertension (ICD-10 - I10) 06/28/2024 Cystocele, unspecified (ICD-10 - N81.10) 06/28/2024 Dyspnea, unspecified (ICD-10 - R06.00) 06/28/2024 Age-related osteoporosis without current pathological fracture (ICD-10 - M81.0) Plan Of Treatment Next Appt Details Provider Name:Tacho Solis , 11/05/2025 04:45:00 PM, [address] [facility], [facility], [place], [address], Progress Notes * Thuy BANDADOB:1950 (74 yo F)Acc No.[id number]:06/28/2024 Progress Notes Patient: Thuy BONNER Provider: Darryl OSPINA MD, F.Barry.Richi.P, F.A.S.N. :1950 A ge:73 Y S ex:Female Date:06/28/2024 Address:[address] [place] [address] Subjective: * Chief Complaints: * * Medical History: Objective: * Vitals: Assessment: * Assessment: 1. C hronic kidney disease, stage 3 unspecified - N18.30 (Primary) 2 . E ssential hypertension - I10 3 . C ystocele, unspecified - N81.10 4 . D yspnea, unspecified - R06.00 5 . A ge-related osteoporosis without current pathological fracture - M81.0 Plan: * Treatment: * Billing Information: * Visit Code: 78383 Office Visit, New Pt., Level 5. * Procedure Codes: * Electronic signature of Salma Solis MD on 09/03/2025 at 03:26 PM HEAD OF HOUSEKEEPING Sign off status: Pending * Provider: Darryl OSPINA MD, Nathanael.CristinaP, F.A.S.N. Date: 0 06/28/2024 Generated for Printing/Faxing/eTransmitting on: 1 11/04/2024 03:26 PM HEAD OF HOUSEKEEPING
--- OUTSIDE RECORDS SUMMARY | 2024-07-12 08:30 | XMS_ITS ---
Author Organization [facility] Office Address [address] [place] [address] Care Team Providers Care Senior Product Consultant Name Role Phone Tacho Solis Unavailable [phone] Encounters Encounter Location Date Provider Diagnosis [place] [facility] [address] [facility] [address] [place] [address] 07/12/2024 Tacho Solis Chronic kidney disease, stage 3 unspecified N18.30 ; Essential hypertension I10 ; Cystocele, unspecified N81.10 and Age-related osteoporosis without current pathological fracture M81.0 Assessments Encounter Date Diagnosis (ICD Code) Assessment Notes Treatment Notes Treatment Clinical Notes Section Notes 07/12/2024 Chronic kidney disease, stage 3 unspecified (ICD-10 - N18.30) 07/12/2024 Essential hypertension (ICD-10 - I10) 07/12/2024 Cystocele, unspecified (ICD-10 - N81.10) 07/12/2024 Age-related osteoporosis without current pathological fracture (ICD-10 - M81.0) Plan Of Treatment Next Appt Details Provider Name:Tacho Solis , 11/05/2025 04:45:00 PM, [address] [facility] 15, [place], [address], Progress Notes * Thuy BANDADOB:1950 (74 yo F)Acc No.[id number]:07/12/2024 Progress Notes Patient: Thuy BONNER Provider: Darryl OSPINA MD, F.A.C.P, F.A.S.N. :1950 A ge:73 Y S ex:Female Date:07/12/2024 Address:[address] [place] [address] Subjective: * Chief Complaints: * * Medical History: Objective: * Vitals: Assessment: * Assessment: 1. C hronic kidney disease, stage 3 unspecified - N18.30 (Primary) 2 . E ssential hypertension - I10 3 . C ystocele, unspecified - N81.10 4 . A ge-related osteoporosis without current pathological fracture - M81.0 Plan: * Treatment: * Billing Information: * Visit Code: 68219 Office Visit, Est Pt., Level 4. * Procedure Codes: * Electronic signature of Salma Solis MD on 09/03/2025 at 03:27 PM PANEL MAKER Sign off status: Pending * Provider: Darryl OSPINA MD, F.A.C.P, F.A.S.N. Date: Generated for Printing/Faxing/eTransmitting on: 11/04/2024 03:27 PM PANEL MAKER
--- OUTSIDE RECORDS SUMMARY | 2024-09-11 10:15 | XMS_ITS ---
Author Organization [facility] Office Address [address] [place] [address] Care Team Providers Care Assistant Elementary Teacher Name Role Phone Jose Daniel Solisjit Unavailable [phone] Problems Problem Type SNOMED Code ICD Code Onset Dates Problem Status W/U Status Risk Notes Problem Diabetic renal disease (330253364) Type 2 diabetes mellitus with diabetic chronic kidney disease (E11.22) Active confirmed Problem Vitamin D deficiency (18553816) Vitamin D deficiency, unspecified (E55.9) Active confirmed Encounters Encounter Location Date Provider Diagnosis [place] [facility] [address] [facility] 15 [place] [address] 09/11/2024 Tacho Solis Chronic kidney disease, stage 3 unspecified N18.30 ; Essential hypertension I10 ; Type 2 diabetes mellitus with diabetic chronic kidney disease E11.22 and Vitamin D deficiency, unspecified E55.9 Assessments Encounter Date Diagnosis (ICD Code) Assessment Notes Treatment Notes Treatment Clinical Notes Section Notes 09/11/2024 Chronic kidney disease, stage 3 unspecified (ICD-10 - N18.30) 09/11/2024 Essential hypertension (ICD-10 - I10) 09/11/2024 Type 2 diabetes mellitus with diabetic chronic kidney disease (ICD-10 - E11.22) 09/11/2024 Vitamin D deficiency, unspecified (ICD-10 - E55.9) Plan Of Treatment Next Appt Details Provider Name:Tacho Will , 11/05/2025 04:45:00 PM, [address] [facility], [facility] 15, [place], [address], Progress Notes * Thuy BANDADOB:1950 (74 yo F)Acc No.[id number]:09/11/2024 Progress Notes Patient: Thuy BONNER Provider: Darryl OSPINA MD, F.A.C.P, F.A.S.N. :1950 A ge:73 Y S ex:Female Date:09/11/2024 [facility] [place] [address] Subjective: * Chief Complaints: * * Medical History: Objective: * Vitals: Assessment: * Assessment: 1. C hronic kidney disease, stage 3 unspecified - N18.30 (Primary) 2 . E ssential hypertension - I10 3 . T ype 2 diabetes mellitus with diabetic chronic kidney disease - E11.22 4 . V itamin D deficiency, unspecified - E55.9 ? Plan: * Treatment: * Billing Information: * Visit Code: 94169 Office Visit, Est Pt., Level 4. * Procedure Codes: * Electronic signature of Salma Solis MD on 09/03/2025 at 03:27 PM LINING CLEANER Sign off status: Pending * Provider: Darryl OSPINA MD, F.A.C.P, F.A.S.N. Date: 2023 Generated for Printing/Faxing/eTransmitting on: 11/04/2024 03:27 PM LINING CLEANER
--- OUTSIDE RECORDS SUMMARY | 2024-11-20 09:45 | XMS_ITS ---
Author Organization [facility] Address [address] [facility] [address] [facility] [address] [place] [address] Care Team Providers Care Coordinate Measuring Equipment Operator Name Role Phone Jose Daniel Solisjit Unavailable [phone] Encounters Encounter Location Date Provider Diagnosis [place] [facility] [address] [facility] 15 [place] [address] 11/20/2024 Tacho Solis Plan Of Treatment Next Appt Details Provider Name:Tacho Will , 11/05/2025 04:45:00 PM, [address] [facility], [facility] 15, [place], [address], Progress Notes * Thuy BANDADOB:1950 (74 yo F)Acc No.[id number]:11/20/2024 Progress Notes Patient: Thuy BONNER Provider: Darryl OSPINA MD, Nathanael.Barry.C.P, F.A.S.N. :1950 A ge:74 Y S ex:Female Date:11/20/2024 Address:[address] [place] [address] Subjective: * Chief Complaints: * * Medical History: Objective: * Vitals: Assessment: Plan: * Treatment: * Billing Information: * Visit Code: * Procedure Codes: * Electronic signature of Salma Solis MD on 09/03/2025 at 03:26 PM E COMM[employer] WEB DEVELOPER Sign off status: Pending * Provider: Darryl OSPINA MD, Nathanael.Barry.C.P, F.A.S.N. Date: 0 11/20/2024 Generated for Printing/Faxing/eTransmitting on: 11/04/2024 03:26 PM E COMM[employer] WEB DEVELOPER
--- OUTSIDE RECORDS SUMMARY | 2024-12-18 10:00 | XMS_ITS ---
Author Organization [facility] Office Address [address] [address] [place] [address] Care Team Providers Care Oil And [employer] Principal Name Role Phone SolisKodyTacho Unavailable [phone] Problems Problem Type SNOMED Code ICD Code Onset Dates Problem Status W/U Status Risk Notes Problem Hyperlipidemia (96010048) Hyperlipidemia , unspecified (E78.5) Active confirmed Problem Hyperparathyroidism (79010256) Hyperparathyro idism, unspecified (E21.3) Active confirmed Problem Urgent desire to urinate (20487370) Urgency of urination (R39.15) Active confirmed Problem Proteinuria (83106270) Proteinur ia, unspecified (R80.9) Active confirmed Encounters Encounter Location Date Provider Diagnosis [place] [facility] [address] [facility] [address] [place] [address] 12/18/2024 Tacho Solis Chronic kidney disease, stage 3 unspecified N18.30 ; Essential hypertension I10 ; Cystocele, unspecified N81.10 ; Age-related osteoporosis without current pathological fracture M81.0 ; Type 2 diabetes mellitus with diabetic chronic kidney disease E11.22 ; Vitamin D deficiency, unspecified E55.9 ; Hyperlipidemia, unspecified E78.5 ; Hyperparathyroidism, unspecified E21.3 ; Urgency of urination R39.15 and Proteinuria, unspecified R80.9 Assessments Encounter Date Diagnosis (ICD Code) Assessment Notes Treatment Notes Treatment Clinical Notes Section Notes 12/18/2024 Chronic kidney disease, stage 3 unspecified (ICD-10 - N18.30) 12/18/2024 Essential hypertension (ICD-10 - I10) 12/18/2024 Cystocele, unspecified (ICD-10 - N81.10) 12/18/2024 Age-related osteoporosis without current pathological fracture (ICD-10 - M81.0) 12/18/2024 Type 2 diabetes mellitus with diabetic chronic kidney disease (ICD-10 - E11.22) 12/18/2024 Vitamin D deficiency, unspecified (ICD-10 - E55.9) 12/18/2024 Hyperlipidemia, unspecified (ICD-10 - E78.5) 12/18/2024 Hyperparathyroidi sm, unspecified (ICD-10 - E21.3) 12/18/2024 Urgency of urination (ICD-10 - R39.15) 12/18/2024 Proteinuria, unspecified (ICD-10 - R80.9) Plan Of Treatment Next Appt Details Provider Name:Tacho Solis , 11/05/2025 04:45:00 PM, [address] [facility], [facility], [place], [place], [facility], Progress Notes * Thuy BANDADOB:1950 (74 yo F)Acc No.[id number]:12/18/2024 Progress Notes Patient: Thuy BONNER Provider: Darryl OSPINA MD, F.A.C.P, F.A.S.N. :1950 A ge:74 Y S ex:Female Date:12/18/2024 Address:[address] [place] [address] Subjective: * Chief Complaints: * * Medical History: Objective: * Vitals: Assessment: * Assessment: 1. C hronic kidney disease, stage 3 unspecified - N18.30 (Primary) 2 . E ssential hypertension - I10 3 . C ystocele, unspecified - N81.10 4 . A ge-related osteoporosis without current pathological fracture - M81.0 5 . Type 2 diabetes mellitus with diabetic chronic kidney disease - E11.22 6 . V itamin D deficiency, unspecified - E55.9 7 . H yperlipidemia, unspecified - E78.5 8 . H yperparathyroidism, unspecified - E21.3 9 . U rgency of urination - R39.15 1 0. P roteinuria, unspecified - R80.9 Plan: * Treatment: * Billing Information: * Visit Code: 31675 Office Visit, Est Pt., Level 4. * Procedure Codes: * Electronic signature of Salma Solis MD on 09/03/2025 at 03:26 PM SERVICE PLANNER Sign off status: Pending * Provider: Darryl OSPINA MD, F.A.C.P, F.A.S.N. Date: 0 12/18/2024 Generated for Printing/Faxing/eTransmitting on: 1 11/04/2024 03:26 PM SERVICE PLANNER
--- OUTSIDE RECORDS SUMMARY | 2025-02-26 10:00 | XMS_ITS ---
Author Organization [facility] Address [address] [place] [address] Care Team Providers Care Fiberglass Grinder Name Role Phone Will Tacho Unavailable [phone] Encounters Encounter Location Date Provider Diagnosis [place] [facility] [address] [facility] [address] [place] [address] 02/26/2025 Tacho Solis Chronic kidney disease, stage 3 [...] Treatment Notes Treatment Clinical Notes Section Notes 02/26/2025 Chronic kidney disease, stage 3 unspecified (ICD-10 - N18.30) 02/26/2025 Essential hypertension (ICD-10 - I10) 02/26/2025 Cystocele, unspecified (ICD-10 - N81.10) 02/26/2025 Age-related osteoporosis without current pathological fracture (ICD-10 - M81.0) 02/26/2025 Type 2 diabetes mellitus with diabetic chronic kidney disease (ICD-10 - E11.22) 02/26/2025 Vitamin D deficiency, unspecified (ICD-10 - E55.9) 02/26/2025 Hyperlipidemia, unspecified (ICD-10 - E78.5) 02/26/2025 Hyperparathyroidi sm, unspecified (ICD-10 - E21.3) 02/26/2025 Urgency of urination (ICD-10 - R39.15) 02/26/2025 Proteinuria, unspecified (ICD-10 - R80.9) Plan Of Treatment Next Appt Details Provider Name:Tacho Will , 11/05/2025 04:45:00 PM, [address] [facility], [facility] 15, [place], [address], Progress Notes * Thuy BANDADOB:1950 (74 yo F)Acc No.[id number]:02/26/2025 Progress Notes Patient: Thuy BONNER Provider: Darryl OSPINA MD, F.A.C.P, F.A.S.N. :1950 A ge:74 Y S ex:Female Date:02/26/2025 Address:[address] [place] [address] Subjective: * Chief Complaints: * * Medical [...] Treatment: * Billing Information: * Visit Code: 01289 Office Visit, Est Pt., Level 4. * Procedure Codes: * Electronic signature of Salma Solis MD on 09/03/2025 at 03:27 PM CLINICAL RESEARCH NURSE COORDINATOR Sign off status: Pending * Provider: Darryl OSPINA MD, F.A.C.P, F.A.S.N. Date: 0 02/26/2025 Generated for Printing/Faxing/eTransmitting on: 1 11/04/2024 03:27 PM CLINICAL RESEARCH NURSE COORDINATOR
--- OUTSIDE RECORDS SUMMARY | 2025-05-21 10:00 | XMS_ITS ---
Author Organization [facility] Address [address] [place] [address] Care Team Providers Care Unitizer Name Role Phone Will Tacho Unavailable [phone] Encounters Encounter Location Date Provider Diagnosis [place] [facility] [address] [facility] [address] [place] [address] 05/21/2025 Tacho Solis Chronic kidney disease, stage 3 [...] Treatment Notes Treatment Clinical Notes Section Notes 05/21/2025 Chronic kidney disease, stage 3 unspecified (ICD-10 - N18.30) 05/21/2025 Essential hypertension (ICD-10 - I10) 05/21/2025 Cystocele, unspecified (ICD-10 - N81.10) 05/21/2025 Age-related osteoporosis without current pathological fracture (ICD-10 - M81.0) 05/21/2025 Type 2 diabetes mellitus with diabetic chronic kidney disease (ICD-10 - E11.22) 05/21/2025 Vitamin D deficiency, unspecified (ICD-10 - E55.9) 05/21/2025 Hyperlipidemia, unspecified (ICD-10 - E78.5) 05/21/2025 Hyperparathyroidi sm, unspecified (ICD-10 - E21.3) 05/21/2025 Urgency of urination (ICD-10 - R39.15) 05/21/2025 Proteinuria, unspecified (ICD-10 - R80.9) Plan Of Treatment Next Appt Details Provider Name:Tacho Will , 11/05/2025 04:45:00 PM, [address], [facility] 15, [place], [address], Progress Notes * Thuy BANDADOB:1950 (74 yo F)Acc No.[id number]:05/21/2025 Progress Notes Patient: Thuy BONNER Provider: Darryl OSPINA MD, F.Barry.C.P, F.A.S.N. :1950 A ge:74 Y S ex:Female Date:05/21/2025 Address:[address] [place] [address] Subjective: * Chief Complaints: Objective: Assessment: * Assessment: 1. C hronic kidney [...] P roteinuria, unspecified - R80.9 Plan: * Billing Information: * Visit Code: 68968 Office Visit, Est Pt., Level 4. * Procedure Codes: * Electronic signature of Salma Solis MD on 09/03/2025 at 03:27 PM PET STYLIST Sign off status: Pending * Provider: Darryl OSPINA MD, F.Barry.C.P, F.A.S.N. Date: 0 05/21/2025 Generated for Printing/Faxing/eTransmitting on: 11/04/2024 03:27 PM PET STYLIST
--- OUTSIDE RECORDS SUMMARY | 2025-07-16 12:00 | XMS_ITS ---
Author Organization [facility] Address [address] [facility] [address] [facility] [address] [place] [address] Care Team Providers Care Information Systems Security Specialist Name Role Phone Will Tacho Unavailable [phone] Encounters Encounter Location Date Provider Diagnosis [place] [facility] 2043 [facility] 15 [place] [address] 07/16/2025 Tacho Solis Plan Of Treatment Next Appt Details Provider Name:Tacho Solis , 11/05/2025 04:45:00 PM, [address] [address], [place], [address], Progress Notes * Thuy BANDADOB:1950 (74 yo F)Acc No.[id number]:07/16/2025 Progress Notes Patient: Thuy BONNER Provider: Darryl OSPINA MD, Nathanael.Barry.C.P, F.A.S.N. :1950 A ge:74 Y S ex:Female Date:07/16/2025 Address:[address] [place] [address] Subjective: * Chief Complaints: Objective: Assessment: Plan: * Billing Information: * Visit Code: * Procedure Codes: * Electronic signature of Salma Solis MD on 09/03/2025 at 03:26 PM HYPERCIL CORE TRANSFORMER ASSEMBLER Sign off status: Pending * Provider: Darryl OSPINA MD, Nathanael.Barry.C.P, F.A.S.N. Date: Generated for Printing/Faxing/eTransmitting on: 11/04/2024 03:26 PM HYPERCIL CORE TRANSFORMER ASSEMBLER
--- OUTSIDE RECORDS SUMMARY | 2025-08-13 10:30 | XMS_ITS ---
Author Organization [facility] Address [address] [place] [address] Care Team Providers Care Wireless Engineer Name Role Phone Will Tacho Unavailable [phone] Problems Problem Type SNOMED Code ICD Code Onset Dates Problem Status W/U Status Risk Notes Problem Chronic kidney disease stage 3A (disorder) (947953155) Chronic kidney disease, stage 3a (N18.31) Active confirmed Problem Metabolic disorder (11333084) Metabolic disorder, unspecified (E88.9) Active confirmed Encounters Encounter Location Date Provider Diagnosis [place] [facility] 2043 [facility] 15 [place] [address] 08/13/2025 Tacho Solis Chronic kidney disease, stage 3a N18.31 ; Essential hypertension I10 ; Cystocele, unspecified N81.10 ; Age-related osteoporosis without current pathological fracture M81.0 ; Type 2 diabetes mellitus with diabetic chronic kidney disease E11.22 ; Vitamin D deficiency, unspecified E55.9 ; Hyperlipidemia, unspecified E78.5 ; Hyperparathyroidism, unspecified E21.3 ; Urgency of urination R39.15 ; Proteinuria, unspecified R80.9 and Metabolic disorder, unspecified E88.9 Assessments Encounter Date Diagnosis (ICD Code) Assessment Notes Treatment Notes Treatment Clinical Notes Section Notes 08/13/2025 Chronic kidney disease, stage 3a (ICD-10 - N18.31) 08/13/2025 Essential hypertension (ICD-10 - I10) 08/13/2025 Cystocele, unspecified (ICD-10 - N81.10) 08/13/2025 Age-related osteoporosis without current pathological fracture (ICD-10 - M81.0) 08/13/2025 Type 2 diabetes mellitus with diabetic chronic kidney disease (ICD-10 - E11.22) 08/13/2025 Vitamin D deficiency, unspecified (ICD-10 - E55.9) 08/13/2025 Hyperlipidemia, unspecified (ICD-10 - E78.5) 08/13/2025 Hyperparathyroidi sm, unspecified (ICD-10 - E21.3) 08/13/2025 Urgency of urination (ICD-10 - R39.15) 08/13/2025 Proteinuria, unspecified (ICD-10 - R80.9) 08/13/2025 Metabolic disorder, unspecified (ICD-10 - E88.9) Plan Of Treatment Next Appt Details Provider Name:Tacho Solis , 11/05/2025 04:45:00 PM, [address]43 [facility], [facility], [place], [place], [facility], Progress Notes * Thuy BANDADOB:1950 (74 yo F)Acc No.[id number]:08/13/2025 Progress Notes Patient: Thuy BONNER Provider: Darryl OSPINA MD, F.A.C.P, F.A.S.N. :1950 A ge:74 Y S ex:Female Date:08/13/2025 Address:[address] [place] [address] Subjective: * Chief Complaints: Objective: Assessment: * Assessment: 1. C hronic kidney disease, stage 3a - N18.31 (Primary) 2 . E ssential hypertension - I10 3 . C ystocele, unspecified - N81.10 4 . A ge-related osteoporosis without current pathological fracture - M81.0 5 . T ype 2 diabetes mellitus with diabetic chronic kidney disease - E11.22 6 . V itamin D deficiency, unspecified - E55.9 7 . H yperlipidemia, unspecified - E78.5 ? 8 . H yperparathyroidism, unspecified - E21.3 9 . U rgency of urination - R39.15 1 0. P roteinuria, unspecified - R80.9 1 1. M etabolic disorder, unspecified - E88.9 Plan: * Billing Information: * Visit Code: 69688 Office Visit, Est Pt., Level 4. * Procedure Codes: * Electronic signature of Salma Solis MD on 09/03/2025 at 03:27 PM ADMINISTRATIVE DIRECTOR Sign off status: Pending * Provider: Darryl OSPINA MD, F.A.C.P, F.A.S.N. Date: 10/13/2024 Generated for Printing/Faxing/eTransmitting on: 11/04/2024 03:27 PM ADMINISTRATIVE DIRECTOR
[2025-09-03 14:20] VITALS: BP 113/72; PULSE 66; RESP 16; TEMP 36.5; O2SAT 99
--- NOTE | 2025-09-03 15:23 | ED.GENADULT ---
HPI - General Adult General Chief complaint: Skin/Abscess/Foreign Body Stated complaint: left leg swelling, painful/swollen bilat hands Time Seen by Provider: 09/03/25 14:23 History of Present Illness HPI narrative: Patient with history of osteoarthritis presents here with some swelling and pain to her left knee, and to her bilateral wrists, ongoing for last 1-2 days. Denies any recent injury or traumas but she does work and is on her feet a lot. No fevers or chills. Related Data Home Medications ?Medication ?Instructions ?Recorded ?Confirmed ?Last Taken ?Type amlodipine 5 mg tablet 5 mg PO DAILY 09/14/22 09/14/22 Unknown History lisinopril 20 mg tablet 20 mg PO BID 09/14/22 09/14/22 Unknown History Held on 09/15/22. Instructions: until further instructed by primary care provider Allergies Allergy/AdvReac Type Severity Reaction Status Date / Time No Known Allergies Allergy Verified 09/14/22 00:46 Review of Systems Review of Systems: All systems reviewed & are unremarkable except as noted in HPI and below PMFSH Past Medical History Medical History Cystocele GERD (gastroesophageal reflux disease) Hypertension Surgical History Surgical History No pertinent past surgical history Family History Family History Father Acute myocardial infarction Mother Cervical cancer Social History Social History Smoking packs per day: 2 Smoking cigarettes per day: 40.0 Smoking status: Former smoker Tobacco type: cigarettes Alcohol intake: never Substance use: never Substance use type: does not use Lack of Transportation: No Lack of Food: Never True Current Housing: I Have Housing Concerned About Future Housing: No Difficulty Paying Gas/Electric Bills: No Difficulty Paying for Meds: No Currently Unemployed: No Education: High School Diploma/GED Difficulty w/ Childcare or Family Care: No Spiritual care concerns: No Exam Narrative: EXAMINATION OF ORGAN SYSTEMS/BODY AREAS: Constitutional: Vital signs per nursing GENERAL:[No acute distress, non-toxic appearing.] HEAD: Normal with no signs of head trauma. EYES: EOMI, conjunctiva normal ENT: Hearing grossly intact LUNGS: Nonlabored breathing. HEART: [Regular rate and rhythm], normal bilateral radial pulses, DP pulse ABD: [Soft], [nontender to palpation] EXT: Some swelling to the wrist joints bilaterally and the left knee, but painless normal range of motion; possible minimal redness to right wrist. SKIN: See above NEURO: [Alert. No gross focal sensory or strength deficits.] PSYCH: Normal affect Course Vital Signs Vital signs: Vital Signs Temperature 97.7 F 09/03/25 14:20 Pulse Rate 66 09/03/25 14:20 Respiratory Rate 16 09/03/25 14:20 Blood Pressure 113/72 09/03/25 14:20 Pulse Oximetry 99 09/03/25 14:20 Temperature 97.7 F 09/03/25 14:20 Pulse Rate 66 09/03/25 14:20 Respiratory Rate 16 09/03/25 14:20 Blood Pressure 113/72 09/03/25 14:20 Pulse Oximetry 99 09/03/25 14:20 MDM MDM Narrative Medical decision making narrative: Patient presents with some swelling and pain to her left knee, bilateral wrists. She does have a history of arthritis, and this does look like an arthritis flare; she is neurovascularly intact, very unlikely septic joint given painless normal range of motion; very unlikely DVT without swelling to the legs or tenderness, negative Homans sign. She has kidney problems so I will trial course of steroids and give her follow-up to orthopedist, patient and family members at bedside counseled on strict return precautions for septic joint Differential Diagnosis Differential Diagnosis: Arthritis, very unlikely septic joint given painless normal range of motion; very unlikely DVT without swelling to the legs or tenderness, negative Homans sign Discharge Plan Discharge Clinical Impression: Arthritis Patient Disposition: Home Condition: Stable Instructions: Arthritis (ED) Additional Instructions: Try the medications as prescribed and follow-up with orthopedics. If you start having pain with movement of your joints, if they turn red and you start having fevers or chills, please come back to the emergency room. Patient Language: Spanish Prescriptions: New prednisone 20 mg tablet 40 mg PO DAILY 4 Days Qty: 8 0RF No Action lisinopril 20 mg tablet 20 mg PO BID amlodipine 5 mg tablet 5 mg PO DAILY Follow-up/Referrals: Shayna,Dejon Allan MD [Primary Care Provider, Unknown] Carlton Moore MD [Physician, Orthopedics] - 2 Days
--- OUTSIDE RECORDS SUMMARY | 2025-09-03 15:26 | XMS_ITS | Patient Health Record ---
Author Organization [facility] Address [address] [facility] [address] [place] [address] Care Team Providers Care Cashier Clerk Name Role Phone Tacho Solis Unavailable [phone] Reason For Referral No Information Medications Medication SIG (Take, Route, Frequency, Duration) Notes Start Date End Date Status amLODIPine Besylate 5 MG TAKE 1 TABLET B Y MOUTH DAILY; Duration: 90 Active Calcitriol 0.25 MCG TAKE 1 CAPSULE BY MO UTH DAILY; Duration: 90 Active Problems Problem Type SNOMED Code ICD Code Onset Dates Problem Status W/U Status Risk Notes Problem Diabetic renal disea se (863833209) Type 2 diabetes mellitus with diabetic chronic kidney disease (E11.22) Active confirmed Problem Hyperparathyroidism (66880719) Hyperparathyroi dism, unspecified (E21.3) Active confirmed Problem Vitamin D deficiency (00690021) Vitamin D deficiency, unspecified (E55.9) Active confirmed Problem Hyperlipidemia (83190581) Hyperlipidemia, unspecified (E78.5) Active confirmed Problem Metabolic disorder (92325224) Metabolic disorder, unspecified (E88.9) Active confirmed Problem Age-related osteoporosis (386196924) Age-related osteoporosis without current pathological fracture (M81.0) Active confirmed Problem Cystocele (859048166) Cystocele, unspecified (N81.10) Active confirmed Problem Urgent desire to urinate (54438581) Urgency of urination (R39.15) Active confirmed Problem Proteinuria (38076606) Proteinur ia, unspecified (R80.9) Active confirmed Problem Essential hypertensi on (49586548) Essential hypertension (I10) Active confirmed Problem Chronic kidney disea se stage 3A (disorder) (106952673) Chronic kidney disease, stage 3a (N18.31) Active confirmed Encounters Encounter Location Date Provider Diagnosis [facility] [address] [facility] [address] [place] [address] 09/11/2024 Tacho Solis Chronic kidney disease, stage 3 unspecified N18.30 ; Essential hypertension I10 ; Type 2 diabetes mellitus with diabetic chronic kidney disease E11.22 and Vitamin D deficiency, unspecified E55.9 [facility] [address] [place] [address] 12/18/2024 Tacho Solis Chronic kidney disease, stage 3 unspecified N18.30 ; Essential hypertension I10 ; Cystocele, unspecified N81.10 ; Age-related osteoporosis without current pathological fracture M81.0 ; Type 2 diabetes mellitus with diabetic chronic kidney disease E11.22 ; Vitamin D deficiency, unspecified E55.9 ; Hyperlipidemia, unspecified E78.5 ; Hyperparathyroidism, unspecified E21.3 ; Urgency of urination R39.15 and Proteinuria, unspecified R80.9 [facility] [address] [place] [address] 02/26/2025 Tacho Solis Chronic kidney disease, stage 3 unspecified N18.30 ; Essential hypertension I10 ; Cystocele, unspecified N81.10 ; Age-related osteoporosis without current pathological fracture M81.0 ; Type 2 diabetes mellitus with diabetic chronic kidney disease E11.22 ; Vitamin D deficiency, unspecified E55.9 ; Hyperlipidemia, unspecified E78.5 ; Hyperparathyroidism, unspecified E21.3 ; Urgency of urination R39.15 and Proteinuria, unspecified R80.9 [facility] [address] [place] [address] 05/21/2025 Tacho Solis Chronic kidney disease, stage 3 unspecified N18.30 ; Essential hypertension I10 ; Cystocele, unspecified N81.10 ; Age-related osteoporosis without current pathological fracture M81.0 ; Type 2 diabetes mellitus with diabetic chronic kidney disease E11.22 ; Vitamin D deficiency, unspecified E55.9 ; Hyperlipidemia, unspecified E78.5 ; Hyperparathyroidism, unspecified E21.3 ; Urgency of urination R39.15 and Proteinuria, unspecified R80.9 [facility] [address] [place] [address] 08/13/2025 Tacho Solis Chronic kidney disease, stage [...] unspecified R80.9 and Metabolic disorder, unspecified E88.9 [facility] [address] [place] [address] 10/11/2024 Tacho Solis [facility] [address] [address] 10/11/2024 Tacho [facility] [address] [address] 05/21/2025 Tacho Roy [address] [place] [address] 08/13/2025 Tacho Solis Assessments Encounter Date Diagnosis (ICD Code) Assessment Notes Treatment Notes Treatment Clinical Notes Section Notes 09/11/2024 Essential hypertension (ICD-10 - I10) 09/11/2024 Chronic kidney disease, stage 3 unspecified (ICD-10 - N18.30) 12/18/2024 Chronic kidney disease, stage 3 unspecified (ICD-10 - N18.30) 02/26/2025 Chronic kidney disease, stage 3 unspecified (ICD-10 - N18.30) 05/21/2025 Chronic kidney disease, stage 3 unspecified (ICD-10 - N18.30) 08/13/2025 Chronic kidney disease, stage 3a (ICD-10 - N18.31) 08/13/2025 Essential hypertension (ICD-10 - I10) 05/21/2025 Essential hypertension (ICD-10 - I10) 02/26/2025 Essential hypertension (ICD-10 - I10) 12/18/2024 Essential hypertension (ICD-10 - I10) 09/11/2024 Type 2 diabetes mellitus with diabetic chronic kidney disease (ICD-10 - E11.22) 09/11/2024 Vitamin D deficiency, unspecified (ICD-10 - E55.9) 12/18/2024 Cystocele, unspecified (ICD-10 - N81.10) 02/26/2025 Cystocele, unspecified (ICD-10 - N81.10) 05/21/2025 Cystocele, unspecified (ICD-10 - N81.10) 08/13/2025 Cystocele, unspecified (ICD-10 - N81.10) 08/13/2025 Age-related osteoporosis without current pathological fracture (ICD-10 - M81.0) 05/21/2025 Age-related osteoporosis without current pathological fracture (ICD-10 - M81.0) 02/26/2025 Age-related osteoporosis without current pathological fracture (ICD-10 - M81.0) 12/18/2024 Age-related osteoporosis without current pathological fracture (ICD-10 - M81.0) 12/18/2024 Type 2 diabetes mellitus with diabetic chronic kidney disease (ICD-10 - E11.22) 02/26/2025 Type 2 diabetes mellitus with diabetic chronic kidney disease (ICD-10 - E11.22) 05/21/2025 Type 2 diabetes mellitus with diabetic chronic kidney disease (ICD-10 - E11.22) 08/13/2025 Type 2 diabetes mellitus with diabetic chronic kidney disease (ICD-10 - E11.22) 08/13/2025 Vitamin D deficiency, unspecified (ICD-10 - E55.9) 05/21/2025 Vitamin D deficiency, unspecified (ICD-10 - E55.9) 02/26/2025 Vitamin D deficiency, unspecified (ICD-10 - E55.9) 12/18/2024 Vitamin D deficiency, unspecified (ICD-10 - E55.9) 12/18/2024 Hyperlipidemia, unspecified (ICD-10 - E78.5) 02/26/2025 Hyperlipidemia, unspecified (ICD-10 - E78.5) 05/21/2025 Hyperlipidemia, unspecified (ICD-10 - E78.5) 08/13/2025 Hyperlipidemia, unspecified (ICD-10 - E78.5) 08/13/2025 Hyperparathyroidi sm, unspecified (ICD-10 - E21.3) 05/21/2025 Hyperparathyroidi sm, unspecified (ICD-10 - E21.3) 02/26/2025 Hyperparathyroidi sm, unspecified (ICD-10 - E21.3) 12/18/2024 Hyperparathyroidi sm, unspecified (ICD-10 - E21.3) 12/18/2024 Urgency of urination (ICD-10 - R39.15) 02/26/2025 Urgency of urination (ICD-10 - R39.15) 05/21/2025 Urgency of urination (ICD-10 - R39.15) 08/13/2025 Urgency of urination (ICD-10 - R39.15) 08/13/2025 Proteinuria, unspecified (ICD-10 - R80.9) 05/21/2025 Proteinuria, unspecified (ICD-10 - R80.9) 02/26/2025 Proteinuria, unspecified (ICD-10 - R80.9) 12/18/2024 Proteinuria, unspecified (ICD-10 - R80.9) 08/13/2025 Metabolic disorder, unspecified (ICD-10 - E88.9) Plan Of Treatment Next Appt Details Provider Name:Tacho Solis , 11/05/2025 04:45:00 PM, [address] [facility], [facility] [address], [address],
--- OUTSIDE RECORDS SUMMARY | 2025-09-03 15:28 | XMS_ITS | Clinical Summary ---
Author Organization [facility] Address [address] [facility] [address] [place] [address] Phone Care Team Providers Care Fitter Helper Name Role Phone Dejon Corral MD Primary Care Provider [phone] Allergies No known active allergies Medications amLODIPine (NORVASC) 5 mg tablet Take 5 mg by mouth daily Active HYDROcodone-carlos taminophen (NORCO) 5-325 mg per tabletIndicatio ns:Pain Take 1-2 tablets by mouth every 4 (four) hours as needed for pain for up to 30 doses 20 tablet 10/18/2022 Active docusate sodium (COLACE) 100 mg capsuleIndicati ons:constipatio n Take 1 capsule (100 mg total) by mouth 2 (two) times a day For constipation . 60 capsule 10/18/2022 Active Active Problems Problem Noted Date Diagnosed Date Uterine prolapse 10/18/2022 Uterovaginal prolapse, unspecified 09/21/2022 Overview (09/21/2022): Added automatically from request for surgery [id number] Surgical History Surgery Date Site/Laterality Comments CHOLECYSTECTOMY CYSTOSCOPY W/ URETERAL STENT PLACEMENT 09/01/2022 - 10/01/2022 Bilateral Medical History Medical History Date Comments Hypertension Osteoporosis Urinary tract infection Social History Tobacco Use Types Packs/Day Years Used Date Smoking Tobacco: Former Cigarettes 2 15 1 8 1982 Tobacco Cessation:Counseling Given: Not Answered AUDIT-C Answer Date Recorded Q1: How often do you have a drink containing alcohol? Never 10/18/2022 Q2: How many drinks containi ng alcohol do you have on a typical day when you are drinking? Patient does not drink Q3: How often do you have si x or more drinks on one occasion? Never 10/18/2022 Comments No Sex and Gender Information Value Date Recorded Sex Assigned at Not on file Legal Sex Female 9:23 PM MERCHANDISE STOCKER Gender Identity Not on file Sexual Orientation Not on file Last Filed Vital Signs Vital Sign Reading Time Taken Comments Blood Pressure 131/74 10/19/2022 8:14 AM MERCHANDISE STOCKER Pulse 69 10/19/2022 8:14 AM MERCHANDISE STOCKER Temperature 36.4 C (97.5 F) 10/19/2022 8:14 AM MERCHANDISE STOCKER Respiratory Rate 16 10/19/2022 8:14 AM MERCHANDISE STOCKER Oxygen Saturation 99% 10/19/2022 8:14 AM MERCHANDISE STOCKER Inhaled Oxygen Concentration - - Weight 74.6 kg (164 lb 7.4 oz) 10/18/2022 11:23 AM MERCHANDISE STOCKER Height 170.2 cm (5' 7) 10/18/2022 11:23 AM MERCHANDISE STOCKER Body Mass Index 25.76 10/18/2022 11:23 AM MERCHANDISE STOCKER Plan of Treatment Health Maintenance Due Date Last Done Comments Colon Cancer Screening-Colonoscopy 1950 Depression Screening 1950 Hepatitis C Screening 1950 Osteoporosis Screening-Bone Density Scan 1949 DTaP/Tdap/Td Vaccine (1 - Tdap) 1960 Hepatitis B Screening 1967 Zoster Vaccine (1 of 2) 1999 Well Visit 65+ 2014 Fall Risk Assessment 10/19/2023 10/19/2022 Covid-19 Vaccine ( season) 06/02/202506/2021, 12/01/2020 Influenza Vaccine (#1) 2025 08/17/2021 Pneumococcal vaccine 65+ Completed 07/02/2019, 12/31 Insurance [facility] MED[facility] Address: [address] [address] [place] [address] [facility] MDCR HMO [facility] MEDIC[facility] Address: [address] [address] [place] [address] Advance Directives For more information, please contact: [phone] * Full Code (Latest Code Status on File) Date Activated Date Inactivated Comments 10/18/2022 3:26 PM 10/19/2022 5:53 PM Care Teams Fitter Helper Relationship Specialty Start Date End Date Dejon Corral MD PCP - General Internal Medicine 10/12/22
--- OUTSIDE RECORDS SUMMARY | 2025-09-03 15:28 | XMS_ITS | Clinical Summary ---
Author Organization [facility] Address [address] [place] [address] Care Team Providers Care Waitstaff Name Role Phone Dejon Corral MD Primary Care Provider [phone] Encounters Date Type Department Care Team Description 08/18/2025 10:18 AM SAP DATA ARCHITECT - 08/18/2025 11:59 PM SAP DATA ARCHITECT Hospital Encounter [facility] [address] [address] Dejon Corral MD Discharge Disposition: Home or Self Care (Routine Discharge) 08/18/2025 Travel from Last 3 Months Social History Tobacco Use Types Packs/Day Years Used Date Smoking Tobacco: Never Assessed Comments Unknown Sex and Gender Information Value Date Recorded Sex Assigned at Female 08/18/2025 10:13 AM SAP DATA ARCHITECT Legal Sex Female 11:50 AM CDT Gender Identity Not on file Sexual Orientation Not on file Plan of Treatment Health Maintenance Due Date Last Done Comments Colorectal Cancer Screening Colonoscopy (10 Years) 1949 Hepatitis C 1967 DTaP, Tdap and Td Vaccines ( 1 - Tdap) 1968 Zoster Vaccines (1 of 2) 1999 Annual Medicare Wellness Visit 2014 Pneumococcal Vaccine: 50+ Years (2 of 2 - PCV20 or PCV21) 01/16/2019 01/16/2018 RSV Immunization or 60+ Years (1 - 1-dose 75+ series) 2024 COVID-19 Vaccine (3 - 2024-2 6 season) 2025 01/08/2021, 12/01/2020 Influenza Adult (#1) 2025 09/11/2023, 08/17/2021 Dexa Scan (General) Completed 08/18/2025 Hepatitis A Vaccines Aged Out No long er eligible based on patient's age to complete this topic Meningococcal B Vaccine Aged Out No l onger eligible based on patient's age to complete this topic Meningococcal Vaccine Aged Out No beatriz asif eligible based on patient's age to complete this topic RSV Immunizations Under 20 Months Aged Out No longer eligible b ased on patient's age to complete this topic Procedures Procedure Name Priority Date/Time Associated Diagnosis Comments BONE DENSITY/DEXA Routine 08/18/2025 10: 45 AM SAP DATA ARCHITECT Asymptomatic menopausal state from Last 3 Months Results * BONE DENSITY/DEXA (08/18/2025 10:45 AM SAP DATA ARCHITECT) Anatomical Region Laterality Modality Bone Mammography 08/18/2025 12:1 9 PM SAP DATA ARCHITECT Impressions 08/18/2025 12:20 PM SAP DATA ARCHITECT IMPRESSION: WHO Classification: osteoporosis RECOMMENDATIONS: All patients should ensure an adequate intake of dietary calcium and vitamin D. The NOF recommend adults under the age of 50 need 1000 mg of calcium and 400-800 IU of vitamin D daily. Effective therapy for the prevention and treatment of osteoporosis include bisphosphonates. FOLLOW-UP: People with diagnosed cases of osteoporosis or at high risk for fracture should have regular bone mineral density test. For patients eligible for Medicare, routine testing is allowed once every 2 years. Testing frequency can be increased to one year for patients who have rapidly progressing disease, those who are receiving or discontinuing medical therapy to restore bone mass, or have additional risk factors. Ordered By: DEJON CORRAL Interpreted By: Felix Rawls MD, 08/18/2025 12:19 PM Narrative 08/18/2025 12:20 PM SAP DATA ARCHITECT [facility] [address] [place] [address] EXAMINATION: BONE DENSITY/DEXA INDICATIONS: Asymptomatic menopausal state COMPARISON: None TECHNIQUE: DEXA bone mineral density evaluation was performed in the AP projection over the lumbar spine and both hips utilizing standard imaging techniques. FINDINGS: The BMD measured at the AP spine L1-L4 is 0.975 g/cm? with a T-score of -0.7. The BMD measured at the left femoral neck is 0.576 g/cm? with a T-score of -2.5. The BMD measured at the left hip is 0.667 g/cm? with a T-score of -2.3. The BMD measured at the right femoral neck is 0.540 g/cm? with a T-score of - 2.8. The BMD measured at the right hip is 0.708 g/cm? with a T-score of -1.9. FRAX 10-year fracture risk: Major Osteoporotic Fracture: 19% Hip Fracture: 6.5% Procedure Note Felix Rawls MD - 08/18/2025 [facility] [address] [place] [address] EXAMINATION: BONE DENSITY/DEXA INDICATIONS: Asymptomatic menopausal state COMPARISON: None TECHNIQUE: DEXA bone mineral density evaluation was performed in the APprojection over the lumbar spine and both hips utilizing standard imagingtechniques. FINDINGS: The BMD measured at the AP spine L1-L4 is 0.975 g/cm? with a T-score of-0.7. The BMD measured at the left femoral neck is 0.576 g/cm? with a T-score of-2.5. The BMD measured at the left hip is 0.667 g/cm? with a T-score of -2.3. The BMD measured at the right femoral neck is 0.540 g/cm? with a T-scoreof -2.8. The BMD measured at the right hip is 0.708 g/cm? with a T-score of -1.9. FRAX 10-year fracture risk: Major Osteoporotic Fracture: 19% Hip Fracture: 6.5% IMPRESSION: WHO Classification: osteoporosis RECOMMENDATIONS: All patients should ensure an adequate intake of dietary calcium andvitamin D. The NOF recommend adults under the age of 50 need 1000 mg ofcalcium and 400-800 IU of vitamin D daily. Effective therapy for theprevention and treatment of osteoporosis include bisphosphonates. FOLLOW-UP: People with diagnosed cases of osteoporosis or at high risk for fractureshould have regular bone mineral density test. For patients eligible forMedicare, routine testing is allowed once every 2 years. Testing frequencycan be increased to one year for patients who have rapidly progressingdisease, those who are receiving or discontinuing medical therapy torestore bone mass, or have additional risk factors. Ordered By: DEJON CORRAL Interpreted By: Felix Rawls MD, 08/18/2025 12:19 PM us Dejon Corral MD DEXA Final Result from Last 3 Months Insurance MEDICARE Care Teams Waitstaff Relationship Specialty Start Date End Date Dejon Corral MD [address] [place] [id number] PCP - General INTERNAL MEDICINE 08/18/25
--- OUTSIDE RECORDS SUMMARY | 2025-09-03 15:28 | XMS_ITS | Data Portability ---
Author Organization Jose KELLY Address [address] [place] [address] Assessment No assessment recorded. Plan of Treatment Reminders Order Date Submit Date Provider Last Modified By Organization Details Last Modified Time Details Appointments None recorded. Lab culture, urine 2015 016 SARA RAO, [address], [address], [place], [address], 6 06:06:33 urinalysi s, dipstick 2015 016 SARA In-Office Order, Internal Use Only DO Not Attach Compendium DO Not Attach Compendium, Do Not Delete/merge, [id number] 6 11:26:42 pap, IG + HPV, cervical 2015 016 SARA RAO, [address], [address], [place], [address], 6 14:14:39 bacterial vaginosis + vaginitis panel, vaginal 2015 016 SARA RAO, [address], [address], [place], [address], 6 06:04:45 HSV (1+2) DNA, qual, PCR, unspecifi ed specimen 2015 016 SARA RAO, [address], [address], [place], [address], 6 06:04:46 culture, vaginal/r ectal, streptoco ccus group B 2015 016 SARA [facility], [address], [address], [place], [address], 6 06:04:46 Referral urologist referral - further evaluatio n and managemen t 2015 016 [email or web address] Tacho Solis MD (Nephrology, [address], [address], [place], [address], 6 16:24:22 Procedures None recorded. Surgeries None recorded. Imaging mammogram , screening [address] [facility] Add On Lab Orders, [address] [place], [address], 6 10:52:39 Medication Orders Cipro 500 mg tablet 2015 016 [id number], [address], [place], [id number], 6 16:02:01 Patient TargetsNo targets recorded. Patient Instructions Encounter Date Encounter Id Patient Instructions Last Modified By Organization Details Last Modified Time 03/10/2016 [id number] Pelvic floor problems referred to urology [facility] Not available 03/10/2016 15:42:31 Reason for Referral Urologist Referral for Cysto abigail incontinence and cystocele further evaluation and management Referring Physician: Shorty Oconnor, SENIOR BENEFITS MANAGER, Encounter Date: 03/10/2016 Results Created Date Observation Date Name Description Value Unit Range Abnormal Flag Note LastModifiedBy Organization Detail LastModifiedTime 03/10/20 16 03/10/2016 urina lysis , dipst ick Leukocytes Small Not Available In-Offi ce Order Internal Use Only DO Not Attach Compendium DO Not Attach Compendium, Do Not Delete/merge, [id number] 03/10/2016 15:21:35 03/10/20 16 03/10/2016 urina lysis , dipst ick Nitrite negati ve Not Available In-Office Order Internal Use Only DO Not Attach Compendium DO Not Attach Compendium, Do Not Delete/merge, [facility] 03/10/2016 15:21:35 03/10/20 16 03/10/2016 urina lysis , dipst ick Urobilinogen .2 Not Available In-Of fice Order Internal Use Only DO Not Attach Compendium DO Not Attach Compendium, Do Not Delete/merge, [facility] 03/10/2016 15:21:35 03/10/20 16 03/10/2016 urina lysis , dipst ick Protein Negati ve Not Available In-Office Order Internal Use Only DO Not Attach Compendium DO Not Attach Compendium, Do Not Delete/merge, [facility] 03/10/2016 15:21:35 03/10/20 16 03/10/2016 urina lysis , dipst ick pH 6.5 Not Available In-Office Order Internal Use Only DO Not Attach Compendium DO Not Attach Compendium, Do Not Delete/merge, [facility] 03/10/2016 15:21:35 03/10/20 16 03/10/2016 urina lysis , dipst ick Blood Non-He molyze d: Trace Not Available In-Office Order Internal Use Only DO Not Attach Compendium DO Not Attach Compendium, Do Not Delete/merge, [facility] 03/10/2016 15:21:35 03/10/20 16 03/10/2016 urina lysis , dipst ick Specific [place] 1.015 Not Available In-Off ice Order Internal Use Only DO Not Attach Compendium DO Not Attach Compendium, Do Not Delete/merge, [facility] 03/10/2016 15:21:35 03/10/20 16 03/10/2016 urina lysis , dipst ick Ketone Negati ve Not Available In-Office Order Internal Use Only DO Not Attach Compendium DO Not Attach Compendium, Do Not Delete/merge, [facility] 03/10/2016 15:21:35 03/10/20 16 03/10/2016 urina lysis , dipst ick Bilirubin Negati ve Not Available In-Office Order Internal Use Only DO Not Attach Compendium DO Not Attach Compendium, Do Not Delete/merge, [id number] 03/10/2016 15:21:35 03/10/20 16 03/10/2016 urina lysis , dipst ick Glucose Negati ve Not Available In-Office Order Internal Use Only DO Not Attach Compendium DO Not Attach Compendium, Do Not Delete/merge, [id number] 03/10/2016 15:21:35 03/10/20 16 03/10/2016 urina lysis , dipst ick Appearance Not Available In-Offi ce Order Internal Use Only DO Not Attach Compendium DO Not Attach Compendium, Do Not Delete/merge, [id number] 03/10/2016 15:21:35 03/10/20 16 03/10/2016 urina lysis , dipst ick Color Not Available In-Office Order Internal Use Only DO Not Attach Compendium DO Not Attach Compendium, Do Not Delete/merge, [id number] 03/10/2016 15:21:35 03/10/20 16 03/12/2016 cultu re, urine urine culture, routine FINAL REPORT Not Available [facility] ([facility]) [address] [place], [address], 03/12/2016 06:06:33 03/10/20 16 03/12/2016 cultu re, urine result 1 COMMEN T MIXED UROGE NITAL TOMI LESS THAN 10,00 0 COLON IES/M L Not Available [facility] ([facility]) [address] [place], [address], 03/12/2016 06:06:33 03/10/20 16 03/12/2016 bacte rial vagin osis + vagin itis panel , vagin al trich vag by MARIO NEGATI VE negati ve Not Available [facility] ([facility]) [address] [place], [address], 03/14/2016 06:04:45 03/10/20 16 03/13/2016 bacte rial vagin osis + vagin itis panel , vagin al chlamydia trachomatis, MARIO NEGATI VE negati ve Not Available [facility] ([facility]) [address] [place], [address], 03/14/2016 06:04:45 03/10/20 16 03/13/2016 bacte rial vagin osis + vagin itis panel , vagin al neisseria gonorrhoeae, MARIO NEGATI VE negati ve Not Available [facility] ([facility]) [address] [place], [address], 03/14/2016 06:04:45 03/10/20 16 03/14/2016 bacte rial vagin osis + vagin itis panel , vagin al atopobium vaginae LOW - 0 score Not Available [facility] ([facility]) [address] [place], [address], 03/14/2016 06:04:45 03/10/20 16 03/14/2016 bacte rial vagin osis + vagin itis panel , vagin al bvab 2 LOW - 0 score Not Available [facility] ([facility]) [address] [place], [address], 03/14/2016 06:04:45 03/10/20 16 03/14/2016 bacte rial vagin osis + vagin itis panel , vagin al megasphaera 1 LOW - 0 score CALCU LATE TOTAL SCORE BY ANDREY Arita THE 3 INDIV IDUAL BACTE RIAL VAGIN OSIS (BV) MARKE R SCORE S TOGET HER. TOTAL SCORE IS INTER PRETE D FOLLO WS: TOTAL SCORE 0-1: INDIC ATES THE ABSEN CE OF BV. TOTAL SCORE 2: INDET ERMIN ATE FOR BV. ADDIT IONAL CLINI NATALIIA DATA SHOUL D BE EVALU ATED TO ESTAB SUZAN A DIAGN OSIS. TOTAL SCORE 3-6: INDIC ATES THE PRESE NCE OF BV. THIS TEST WAS DEVEL OPED AND ITS PERFO RMANC E LATANYA CTERI STICS DETER MINED BY [facility]. IT HAS NOT BEEN CLEAR ED OR APPRO HARI BY THE FOOD AND DRUG ADMIN ISTRA TION. THE FDA HAS DETER MINED THAT SUCH CLEAR ANCE OR APPRO ÓSCAR IS NOT NECES ANTONELLA. Not Available [facility] ([facility]) [address] [place], [address], 03/14/2016 06:04:45 03/10/20 16 03/14/2016 bacte rial vagin osis + vagin itis panel , vagin al gracia albicans, MARIO NEGATI VE negati ve Not Available [facility] ([facility]) [address] [place], [address], 03/14/2016 06:04:45 03/10/20 16 03/14/2016 bacte rial vagin osis + vagin itis panel , vagin al gracia glabrata, MARIO NEGATI VE negati ve THIS TEST WAS DEVEL OPED AND ITS PERFO RMANC E LATANYA CTERI STICS DETER MINED BY [facility]. IT HAS NOT BEEN CLEAR ED OR APPRO HARI BY THE FOOD AND DRUG ADMIN ISTRA TION. THE FDA HAS DETER MINED THAT SUCH CLEAR ANCE OR APPRO ÓSCAR IS NOT NECES ANTONELLA. Not Available [facility] ([facility]) [address] [facility], [place], [address], 03/14/2016 06:04:45 03/10/20 16 03/12/2016 HSV (1+2) DNA, qual, PCR, unspe cifie d speci men hsv 1 MARIO NEGATI VE negati ve Not Available [facility] ([facility]) [address] [place], [address], 03/14/2016 06:04:45 03/10/20 16 03/12/2016 HSV (1+2) DNA, qual, PCR, unspe cifie d speci men hsv 2 MARIO NEGATI VE negati ve Not Available [facility] ([facility]) [address] [place], [address], 03/14/2016 06:04:45 03/10/20 16 03/12/2016 cultu re, vagin al/re ctal, strep tococ cus group B strep gp B MARIO NEGATI VE negati ve CENTE RS FOR DISEA SE CONTR OL AND PREVE NTION (CDC) AND AMERI CAN CONGR ESS OF OBSTE TRICI ANS AND GYNEC OLOGI STS (ACOG ) GUIDE LINES FOR PREVE NTION OF PERIN ATAL GROUP B STREP TOCOC NATALIIA (GBS) DISEA SE SPECI FY CO-CO LLECT ION OF A VAGIN AL AND RECTA L SWAB SPECI MEN TO MAXIM IZE SENSI TIVIT Y OF GBS DETEC TION. PER THE CDC AND ACOG, SWABB ING BOTH THE LOWER VAGIN A AND RECTU M SUBST ANTIA LLY INCRE ASES THE YIELD OF DETEC TION MARITA RED WITH SAMPL ING THE VAGIN A ALONE . PENIC ILLIN G, AMPIC ILLIN , OR CEFAZ NATANAEL ARE INDIC ATED FOR INTRA PARTU M PROPH YLAXI S OF PERIN ATAL GBS COLON IZATI ON. REFLE X SUSCE PTIBI LITY TESTI NG SHOUL D BE PERFO RMED PRIOR TO USE OF CLIND AMYCI N ONLY ON GBS ISOLA KATIANA FROM PENIC ILLIN -MATHEW RGIC WOMEN WHO ARE CONSI DERED A HIGH RISK FOR ANAPH YLAXI S. TREAT MENT WITH VANCO MYCIN WITHO UT ADDIT IONAL TESTI NG IS WARRA NTED IF RESIS TANCE TO CLIND AMYCI N IS NOTED . Not Available [facility] ([facility]) [address] [facility], [place], [address], 03/14/2016 06:04:46 03/10/20 16 03/15/2016 pap, IG + HPV, cervi nataliia diagnosis: COMMEN T NEGAT ESSENCE FOR INTRA EPITH ELIAL LESIO N AND MALIG KEITH . THIS SPECI MEN WAS RESCR EENED PART OF OUR QUALI TY CONTR OL PROGR AM. Not Available [facility] ([facility]) [address] [facility], [place], [address], 03/15/2016 14:14:39 03/10/20 16 03/15/2016 pap, IG + HPV, cervi nataliia specimen adequacy: COMMEN T SATIS FACTO RY FOR EVALU ATION . Not Available [facility] ([facility]) [address] [facility], [place], [address], 03/15/2016 14:14:39 03/10/20 16 03/15/2016 pap, IG + HPV, cervi nataliia clinician provided ICD10: CATALINA Wallace Z01.4 11 Not Available [facility] ([facility]) [address] [facility], [place], [address], 03/15/2016 14:14:39 03/10/20 16 03/15/2016 pap, IG + HPV, cervi nataliia performed by: CATALINA Torres, CYTOT ECHNO LOGIS T (ASCP ) Not Available [facility] ([facility]) [address] [place], [address], 03/15/2016 14:14:39 03/10/20 16 03/15/2016 pap, IG + HPV, cervi nataliia QC reviewed by: CATALINA LAZARO R, SUPER VISOR Y CYTOT ECHNO LOGIS T (ASCP ) Not Available [facility] ([facility]) [address] [facility], [place], [address], 03/15/2016 14:14:39 03/10/20 16 03/15/2016 pap, IG + HPV, cervi nataliia . . Not Available [facility] ([facility]) [address] [place], [address], 03/15/2016 14:14:39 03/10/20 16 03/15/2016 pap, IG + HPV, cervi nataliia note: CATALINA Wallace THE PAP SMEAR IS A SCREE SHELBIE TEST DESIG KOURTNEY TO AID IN THE DETEC TION OF JACQUIE LIGNA NT AND MALIG NANT CONDI TIONS OF THE UTERI NE CERVI X. IT IS NOT A DIAGN OSTIC PROCE DURE AND SHOUL D NOT BE USED THE SOLE MEANS OF DETEC TING CERVI NATALIIA CANCE R. BOTH FALSE -POSI TIVE AND FALSE -NEGA TIVE REPOR TS DO OCCUR . Not Available [facility] ([facility]) [address] [place], [address], 03/15/2016 14:14:39 03/10/20 16 03/15/2016 pap, IG + HPV, cervi nataliia test methodology: COMMEN T THIS LIQUI D BASED THINP REP(R ) PAP TEST WAS TOMAS KOURTNEY WITH THE USE OF AN IMAGE GUIDE Rayo Moyer Not Available [facility] ([facility]) [address] [facility], [place], [address], 03/15/2016 14:14:39 03/10/20 16 03/15/2016 pap, IG + HPV, cervi nataliia HPV aptima NEGATI VE negati ve THIS TEST DETEC TS FOURT EEN HIGH- RISK HPV TYPES (16/1 8/31/ 33/35 /39/4 5/ 51/52 /56/5 8/59/ 66/68 ) WITHO UT DIFFE RENTI ATION . Not Available [facility] ([facility]) [address] [facility], [place], [address], 03/15/2016 14:14:39 Result Notes None recorded. Problems Name Problem SNOMED Code Status Onset Date Resolution Date Notes Provider Name and Address Organization Details Recorded Time Acute lower urinary tract infection 083645877 Active Shorty Elvinmargarito mayberry, [facility] 6 16:02:00 Cystocele 332281464 Active Shorty Oconnor shawanda, [facility] 6 16:02:00 Problem Notes None recorded. Procedures Surgical History Date Name Laterality Status Provider Name and Address Organization Details Recorded Time 10/02/18 70 Cholecystectomy completed Thuy Moore MA [facility] 03/10/2016 15:02:51 Imaging Results None recorded. Procedure Notes None recorded. Medical Equipment None Reported. Allergies No known drug allergies Medications Name Sig Start Date Stop Date Status Note LastModified by Organization Details LastModified Time Cipro 500 mg tablet Take 1 tablet every 12 hours by oral route. 016 active Not Available Not Available Not Avai lable Vitals Date Recorded Body height Body weight Body mass index (BMI) Systolic And Diastolic Provider Name and Address Organization Details Last Updated DateTime 03/10/2016 165.1 cm 52401.957 93 g 31.5 kg/m2 156/100 mm[Hg] Thuy Moore [place] [facility] 03/10/2016 15:05:09 Social History Question Answer Notes LastModified by Organizat ion Details LastModified Time Tobacco Smoking Status Former Smoker Thuy Moore MA null, [place] - [facility] 03/10/2016 15:02:51 Do You Have An Advance Directive? No Information not available 03/10/2016 Is Blood Transfusion Acceptable In An Emergency? Yes Information not available 03/10/2016 What Is Your Level Of Caffeine Consumption? Moderate Information not available 03/10/2016 How Much Tobacco Do You Chew? None Information not available 03/10/2016 What Type Of Diet Are You Following? REGULAR Information not available 03/10/2016 Education 12 Information no t available 03/10/2016 Live Alone Or With Others? With Others Information not available 03/10/2016 How Many Children Do You Have? 2 Information not available 03/10/2016 Performs Monthly Self-breast Exam? No Information no t available 03/10/2016 What Is Your Relationship Status? Information not available 03/10/2016 Seat Belts Used Routinely Yes Information not available 03/10/2016 Are You Sexually Active? No Information not available 03/10/2016 How Much Tobacco Do You Smoke? 2 PPD Information not available 03/10/2016 General Stress Level Low Information not available 03/10/2016 Do You Use Sunscreen Routinely? No Information not available 03/10/2016 How Many Years Have You Smoked Tobacco? 20 Information not available 03/10/2016 Sex: Unknown Functional Status Question Answer Note LastModified by Organizat ion Details LastModified Time What is your level of alcohol consumption? None Information not available 03/10/2016 Are you currently employed? 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 None Information not available 03/10/2016 Mental Status None recorded. Family History Relationship Description Onset Age of this Age Resolved Age Notes LastModified by Organization Details LastModified Time Mother Malignant neoplasm of cervix uteri felicitas Not available 15:21:34 Father Coronary arterioscler osis felicitas Not available 03/10 15:21:34 Father Heart disease felicitas Not available 03/10 15:21:34 Father Hypercholest erolemia felicitas Not available 03/10 15:21:34 Father Myocardial infarction felicitas Not available 06/2016 15:21:34 Medical History Condition Response Other N High Blood Pressure N Breast Cancer N Thyroid Problems N Kidney or Bladder Problems N GI Problems N Depression N Blood Clots N Lung Disease N Acne N Breast Problem N Eating Disorder N Anemia N Anesthesia Complications N Headaches/Migraines N Anxiety Disorder N Diabetes N Ovarian Cancer N Muscle, Joint, or Bone Problems N Blood Transfusions N Seizures/Epilepsy N Polyps N Infertility N Acid Reflux (GERD) N Cancer N Abuse/Domestic Violence N Asthma N Endometriosis N High Cholesterol N Hepatitis N Liver Disease N Heart Disease N Pre-Eclampsia N Osteoporosis N Gynecological History Statement/Question Response On BCP's at Conception? N STIs/STDs N HPV Vaccine N Age at Menarche 12 Current Control Method None Age at First Child 19 If Post Menopausal, Age at Menopause 49 Sexually Active? N Menses Monthly N Date of Last Pap Smear Sexual Problems? N Desired Control Method None Obstetrics History GPAL:G 2 P 2 0 0 2 Type Value Multiple Births 0 Full Term 2 Induced 0 Spontaneous 0 Premature 0 Living 2 Ectopics 0 Total 2 Past Encounters Encounter ID Performer Location Encounter Start Date Encounter Closed Date Diagnosis/Indication Diagnosis SNOMED-CT Code Diagnosis ICD10 Code Diagnosis IMO Codes Diagnosis Note [id number] Shorty Oconnor MD [facility] (SENIOR BENEFITS MANAGER) [address] [place] [address] 03/10/2016 14:28:30 03/10/2016 18:01:05 Gynecologic examination 44955181 Z01.411 Acute lowe r urinary tract infection 339371249 N39.0 Cystocele 965596952 N81. 10 Screening mammography 24 078735 Z12.31 Health Concerns Section Related Observation LastModified by Organization Detai ls LastModified Time None Recorded Concern Status LastModified by Organization Details LastModified Time None Recorded Advance Directives Directive N: Payers Insurance Date Sequence Insurance Name Policy Number Policy Murguia Covered Member ID Murguia Member ID Guarantor Name 03/11/2016 MEDICARE A-[place]: NGS - RHC - FQHC Thuy Sauceda [id number] Thuy Sauceda 03/10/2016 1 [place] ([place] Thuy Sauceda [id number] Thuy Sauceda Notes Date Note Type Note Provider Name and Address Organization Details Recorded Time 6 text/html Annual Draft Roller Picker Post-MenopausalReported by PatientGenitourinary symptomsFor menopausal symptoms, patient reportsno menopausal symptomsandnormal vaginal lubrication. For vaginal bleeding, patient reportshistory of menopause having occurredandno history of post menopausal bleeding. For urinary symptoms, patient reportsno hematuria,no incontinence,no nocturia, andno urinary frequency. For vulva, patient reportsno genital lesionandno vulvar atrophy. For vagina, patient reportsnormal vaginal dischargeandno vaginal atrophy.Breast symptomsFor breast, patient reportsno breast lump,no nipple discharge, andno breast pain.Psychological symptomsFor sexual complaints, patient reportsno sexual complaints. For psychological symptoms, patient reportsno depressionandno anxiety.Preventative measuresFor preventive measures, patient reportsencourage regular mammograms starting age 40,encourage self breast examination,encourage regular exercise,encourage no tobacco use,needs to schedule mammogram,needs to schedule colonoscopy, andneeds to schedule bone density. Shorty Oconnor [facility] 03/10/2016 18:00:11 OBGyn Episode Ob Episode Information Episode Created Date Number of Fetuses Patient Bloodtype Patient rh Status Prepregnancy Weight lbs Domestic Partner Domestic Partner Phone Father Name J2Ee Software Engineer Status 03/10/20 16 1 CLOSED Fetus Data First Name Last Name Admitted to NICU Weight (g) Sex Living Outcome Pediatric Complications Fetus ID Race Codes Race Delivery Type 3061.74 6 F Full Term [id number] Vaginal Will Calculation Initial Will Date Initial Exam Date Initial Exam Provider Initial Ultrasound Date Last Menstrual Period Date Ultra Sound Weeks Gestation 0 Eighteen To Twenty Week Will Update Ultra Sound Date Fundal Height At Umbil Quickening Date Ultra Sound Latest Weeks Gestation Final Will Confirmed By Final Will Confirmed Date Final Will Date Ultra Sound Latest Days Gestation 0 0 Menstrual History Last Menstrual Date Menses Monthly On Bcp Conception Prior Menses Frequency Hcg Plus Date Menarche Onset Age Delivery Information Delivery Date Delivery Type Labor Anesthesia Weeks Gestation Incision Type Labor Labor Length Hrs Delivered By Post Complications Tubal Sterilization Discharge Date Comments 5 General 40 false [place] Discharge Information Feeding Method Contraceptive Method Maternal HG B and HCT Levels Ob Episode Information Episode Created Date Number of Fetuses Patient Bloodtype Patient rh Status Prepregnancy Weight lbs Domestic Partner Domestic Partner Phone Father Name J2Ee Software Engineer Status 03/10/20 16 1 CLOSED Fetus Data First Name Last Name Admitted to NICU Weight (g) Sex Living Outcome Pediatric Complications Fetus ID Race Codes Race Delivery Type 3288.54 2 F Full Term [id number] Vaginal Will Calculation Initial Will Date Initial Exam Date Initial Exam Provider Initial Ultrasound Date Last Menstrual Period Date Ultra Sound Weeks Gestation 0 Eighteen To Twenty Week Will Update Ultra Sound Date Fundal Height At Umbil Quickening Date Ultra Sound Latest Weeks Gestation Final Will Confirmed By Final Will Confirmed Date Final Will Date Ultra Sound Latest Days Gestation 0 0 Menstrual History Last Menstrual Date Menses Monthly On Bcp Conception Prior Menses Frequency Hcg Plus Date Menarche Onset Age Delivery Information Delivery Date Delivery Type Labor Anesthesia Weeks Gestation Incision Type Labor Labor Length Hrs Delivered By Post Complications Tubal Sterilization Discharge Date Comments 0 General 40 false [place] Discharge Information Feeding Method Contraceptive Method Maternal HG B and HCT Levels
--- OUTSIDE RECORDS SUMMARY | 2025-09-03 15:53 | XMS_ITS | Clinical Summary ---
Author Organization [facility] Address [address] [place] [address] Care Team Providers Care Unit Tender Name Role Phone Dejon Corral MD Primary Care Provider [phone] Encounters Date Type Department Care Team Description 08/18/2025 10:18 AM DYE COLORIST DYER - 08/18/2025 11:59 PM DYE COLORIST DYER Hospital Encounter [facility] Mammography [address] [address] Dejon Corral MD Discharge Disposition: Home or Self Care (Routine Discharge) 08/18/2025 Travel from Last 3 Months Social History Tobacco Use Types Packs/Day Years Used Date Smoking Tobacco: Never Assessed Comments Unknown Sex and Gender Information Value Date Recorded Sex Assigned at Female 08/18/2025 10:13 AM DYE COLORIST DYER Legal Sex Female 11:50 AM CDT Gender [...] BONE DENSITY/DEXA Routine 08/18/2025 10: 45 AM DYE COLORIST DYER Asymptomatic menopausal state from Last 3 Months Results * BONE DENSITY/DEXA (08/18/2025 10:45 AM DYE COLORIST DYER) Anatomical Region Laterality Modality Bone Mammography 08/18/2025 12:1 9 PM DYE COLORIST DYER Impressions 08/18/2025 12:20 PM DYE COLORIST DYER IMPRESSION: WHO Classification: osteoporosis RECOMMENDATIONS: All patients [...] 08/18/2025 12:19 PM Narrative 08/18/2025 12:[address] [facility] [address] [place] [address] EXAMINATION: BONE DENSITY/DEXA INDICATIONS: Asymptomatic menopausal state [...] Procedure Note Felix Rawls MD - 08/18/2025 [facility] [address] [place] [address] EXAMINATION: BONE DENSITY/DEXA INDICATIONS: Asymptomatic menopausal state [...] Last 3 Months Insurance MEDICARE Care Teams Unit Tender Relationship Specialty Start Date End Date Dejon Corral MD [address] [place] [id number] PCP - General INTERNAL MEDICINE 08/18/25
--- OUTSIDE RECORDS SUMMARY | 2025-09-03 15:53 | XMS_ITS | Clinical Summary ---
Author Organization [facility] Address [address] [place] [address] Phone Care Team Providers Care Gliding Pilot Instructor Name Role Phone Dejon Corral MD Primary Care Provider [phone] Allergies No known active allergies Medications amLODIPine [...] (09/21/2022): Added automatically from request for surgery [id number] Surgical History Surgery Date Site/Laterality Comments CHOLECYSTECTOMY [...] on file Legal Sex Female 9:23 PM [employer]IECE [employer] Gender Identity Not on file Sexual Orientation Not on file Last Filed Vital Signs Vital Sign Reading Time Taken Comments Blood Pressure 131/74 10/19/2022 8:14 AM [employer] PIECE C[employer] Pulse 69 10/19/2022 8:14 AM [employer] PIECE C[employer] Temperature 36.4 C (97.5 F) 10/19/2022 8:14 AM [employer] PIECE C[employer]TER Respiratory Rate 16 10/19/2022 8:14 AM [employer] PIECE C[employer]TER Oxygen Saturation 99% 10/19/2022 8:14 AM [employer] PIECE C[employer]TER Inhaled Oxygen Concentration - - Weight 74.6 kg (164 lb 7.4 oz) 10/18/2022 11:23 AM [employer] PIECE C[employer]TER Height 170.2 cm (5' 7) 10/18/2022 11:23 AM [employer] PIECE C[employer]TER Body Mass Index 25.76 10/18/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
== END 2025-09-03 15:05 | disposition home or self-care (01) ==
PROVIDERS: Emergency Provider Emergency Medicine; PCP Internal Medicine
DX: M19.91 Primary osteoarthritis, unspecified site (principal); K21.9 Gastro-esophageal reflux disease without esophagitis; I10 Essential (primary) hypertension; Z87.891 Personal history of nicotine dependence
CPT/HCPCS: 99283; J7512